=== PATIENT | male | born 1955 | race Caucasian/White ===

== ENCOUNTER 2023-04-28 09:21 | Outpatient (OUT) | payer MEDICARE, OTHER, SELFPAY ==
--- NOTE | 2023-04-28 09:37 | XR_ITS ---
The [address] [address] Patient Name: PRICE ESCOTO MRN: [id number] date: 1955 Sex: M Assigned Patient Location: [facility] Current Patient Location: [facility] Accession/Order Number: [id number] Exam Date: 04/28/2023 09:44 Report Date: 04/28/2023 11:04 At the request of: DAYANNA LARSEN Procedure: XR chest 2V EXAM: XR chest 2V HISTORY: Subacute Cough R05.2 COMPARISON: None. TECHNIQUE: PA and lateral views of the chest. FINDINGS: The cardiomediastinal silhouette is normal. No focal consolidation is identified. There is no pneumothorax. No pleural effusion is noted. The osseous structures are intact. XR/XR chest 2V IMPRESSION: No acute cardiopulmonary process. Electronically authenticated by: SARAH LEIVA Date: 04/28/2023 11:04
== END 2023-04-28 09:22 | disposition home or self-care (01) ==
PROVIDERS: PCP Internal Medicine; Visit Provider Internal Medicine
DX: R05.2 Subacute cough (principal)
CPT/HCPCS: 71046

== ENCOUNTER 2023-05-18 11:19 | Outpatient (OUT) | payer MEDICARE, OTHER, SELFPAY ==
--- NOTE | 2023-05-18 12:15 | XR_ITS ---
The [address] [address] Patient Name: PRICE ESCOTO MRN: [id number] date: 1955 Sex: M Assigned Patient Location: LAB Current Patient Location: LAB Accession/Order Number: [id number] Exam Date: 05/18/2023 12:05 Report Date: 05/19/2023 11:32 At the request of: JONATHAN AVILA Procedure: XR sinus min 3V EXAM: XR sinus min 3V. HISTORY: Chronic Sinusitis J32.9. COMPARISON: None. TECHNIQUE: 4 views of the paranasal sinuses were obtained. FINDINGS: Paranasal sinuses appear well-developed and aerated. No evidence of mass lesions, air-fluid levels or bony destruction suggested. No significant mucosal thickening. Visualized mastoid air cells appear grossly unremarkable. XR/XR sinus min 3V IMPRESSION: Paranasal sinuses study is grossly unremarkable. Follow-up as needed. Electronically authenticated by: TISH HALL Date: 05/19/2023 11:32
[2023-05-22 06:09] LABS: D001-IgE D pteronyssinus <0.10 kU/L (Class 0); D002-IgE D farinae <0.10 kU/L (Class 0); E001-IgE Cat Dander <0.10 kU/L (Class 0); E005-IgE Dog Dander <0.10 kU/L (Class 0); E072-IgE Mouse Urine <0.10 kU/L (Class 0); G002-IgE Bermuda Grass <0.10 kU/L (Class 0); G006-IgE Timothy Grass <0.10 kU/L (Class 0); I006-IgE Cockroach, German <0.10 kU/L (Class 0); Immunoglobulin E, Total 50 IU/mL (6-495); M001-IgE Penicillium chrysogen <0.10 kU/L (Class 0); M002-IgE Cladosporium herbarum <0.10 kU/L (Class 0); M003-IgE Aspergillus fumigatus <0.10 kU/L (Class 0); M006-IgE Alternaria alternata <0.10 kU/L (Class 0); T001-IgE Maple/Box Elder <0.10 kU/L (Class 0); T003-IgE Common Silver Birch <0.10 kU/L (Class 0); T006-IgE Cedar, Mountain <0.10 kU/L (Class 0); T007-IgE Oak, White <0.10 kU/L (Class 0); T008-IgE Elm, American <0.10 kU/L (Class 0); T010-IgE Walnut <0.10 kU/L (Class 0); T011-IgE Maple Leaf Sycamore <0.10 kU/L (Class 0); T014-IgE Cottonwood <0.10 kU/L (Class 0); T015-IgE Ash, White <0.10 kU/L (Class 0); T022-IgE Pecan, Hickory <0.10 kU/L (Class 0); T070-IgE White Mulberry <0.10 kU/L (Class 0); W001-IgE Ragweed, Short <0.10 kU/L (Class 0); W011-IgE Thistle, Russian <0.10 kU/L (Class 0); W014-IgE Pigweed, Common <0.10 kU/L (Class 0); W018-IgE Sheep Sorrel <0.10 kU/L (Class 0)
== END 2023-05-18 11:20 | disposition home or self-care (01) ==
LOC: LAB 11:23
PROVIDERS: PCP Internal Medicine; Visit Provider Otolaryngology
DX: J32.9 Chronic sinusitis, unspecified (principal); J30.9 Allergic rhinitis, unspecified
CPT/HCPCS: 36415; 70220; 82785; 86003

== ENCOUNTER 2023-06-23 11:59 | Outpatient (OUT) | payer MEDICARE, OTHER, SELFPAY ==
[2023-06-26 12:10] LABS: D001-IgE D pteronyssinus <0.10 kU/L (Class 0); D002-IgE D farinae <0.10 kU/L (Class 0); E001-IgE Cat Dander <0.10 kU/L (Class 0); E005-IgE Dog Dander <0.10 kU/L (Class 0); E072-IgE Mouse Urine <0.10 kU/L (Class 0); G002-IgE Bermuda Grass <0.10 kU/L (Class 0); G006-IgE Timothy Grass <0.10 kU/L (Class 0); I006-IgE Cockroach, German <0.10 kU/L (Class 0); Immunoglobulin E, Total 53 IU/mL (6-495); M001-IgE Penicillium chrysogen <0.10 kU/L (Class 0); M002-IgE Cladosporium herbarum <0.10 kU/L (Class 0); M003-IgE Aspergillus fumigatus <0.10 kU/L (Class 0); M006-IgE Alternaria alternata <0.10 kU/L (Class 0); T001-IgE Maple/Box Elder <0.10 kU/L (Class 0); T003-IgE Common Silver Birch <0.10 kU/L (Class 0); T006-IgE Cedar, Mountain <0.10 kU/L (Class 0); T007-IgE Oak, White <0.10 kU/L (Class 0); T008-IgE Elm, American <0.10 kU/L (Class 0); T010-IgE Walnut <0.10 kU/L (Class 0); T011-IgE Maple Leaf Sycamore <0.10 kU/L (Class 0); T014-IgE Cottonwood <0.10 kU/L (Class 0); T015-IgE Ash, White <0.10 kU/L (Class 0); T022-IgE Pecan, Hickory <0.10 kU/L (Class 0); T070-IgE White Mulberry <0.10 kU/L (Class 0); W001-IgE Ragweed, Short <0.10 kU/L (Class 0); W011-IgE Thistle, Russian <0.10 kU/L (Class 0); W014-IgE Pigweed, Common <0.10 kU/L (Class 0); W018-IgE Sheep Sorrel <0.10 kU/L (Class 0)
== END 2023-06-23 12:00 | disposition home or self-care (01) ==
PROVIDERS: PCP Internal Medicine; Visit Provider Otolaryngology
DX: R97.20 Elevated prostate specific antigen [PSA] (principal); N40.1 Benign prostatic hyperplasia with lower urinary tract symptoms; J30.9 Allergic rhinitis, unspecified
CPT/HCPCS: 36415; 82785; 84153; 84154; 86003

== ENCOUNTER 2023-06-23 12:02 | Outpatient (OUT) | payer MEDICARE, OTHER, SELFPAY ==
--- OUTSIDE RECORDS SUMMARY | 2023-06-23 12:07 | XMS_ITS | CCD ---
Author Name Unknown Address [address] [place] [address] Organization [facility] Care Team Providers Care Senior Technical Writer Name Role Phone MILO GARCIA Primary Care Physician [phone] DO Milo Garcia Primary Care Provider MD Jose Cage Attending Provider Milo Garcia Primary Care Unavailable Jose Cage Attending Unavailable Cage, Jose Admitting Unavailable Jose, Milo Unavailable JOSE, DR ALAN Admitting Unavailable BALL, DR ALAN Attending Unavailable BALL, DR ALAN Primary Care Unavailable BALL, DR ALAN Consulting Unavailable ZIEBER, DR GERONIMO Arias Consulting Unavailable BALL, DR ALAN Admitting Unavailable BALL, DR ALAN Attending Unavailable BALL, DR ALAN Primary Care Unavailable BALL, DR ALAN Consulting Unavailable CAGE ., DR CLANCY Admitting Unavailable CAGE ., DR CLANCY Attending Unavailable BALL, DR ALAN Referring Unavailable BALL, DR ALAN Primary Care Unavailable CAGE ., DR CLANCY Consulting Unavailable BALL, DR ALAN Admitting Unavailable BALL, DR ALAN Attending Unavailable BALL, DR ALAN Primary Care Unavailable BALL, DR ALAN Consulting Unavailable CAGE, Jose Arias Attending Unavailable CAGE, Jose Arias Attending Unavailable CAGE, Jose R Attending Unavailable CAGE, Jose Arias Admitting Unavailable LACEY AVILA Attending Unavailable BALL, MILO E Referring Unavailable Allergies Allergy Classification Reported Allergen(s) Allergy Type Date of Onset Reaction(s) Facility (5 sources) Bee/Wasp/Ant venom; Translations: [Bee Stings] Drug allergy Anaphylaxis (disorder) [facility] (1 source) Bee pollen Drug allergy (disorder) 9 [facility] (1 source) patient allergy list reviewed by nurse or physicia Propensity to adverse reactions 8 Comment:Done [employer] Other (1 source) Bee Sting Drug allergy Unknown [employer] Other Medications Current Medications Medication Drug Class(es) Dates Sig (Normalized) Sig (Original) benzonatate 100 mg oral capsule (2 sources) Non-narcotic Antitussive Start: 04-17-2023 take 1 capsule by mouth every eight hours Benzonatate 100 MG 1 capsule as needed Orally Three times a day for 10 days Apr, Active diclofenac sodium 75 mg delayed release oral tablet (8 sources) Nonsteroidal Anti-inflammatory Drug Start: 10-19-2018 Diclofenac Sodium Active 75 MG PO As Directed October 19, 2018 12:00am Diclofenac Sodiu m ER PRN Not-Taking/PRN Diclofenac Sodiu m ER PRN Not-Taking fexofenadine hydrochloride 180 mg oral tablet (5 sources) Histamine-1 Receptor Antagonist Start: 04-10-2023 take 1 tablet by mouth once daily Fexofenadine HCl 180 MG 1 tablet Swallow whole with water; do not take with fruit juices. Orally Once a day for 30 days Mar, Active fluticasone propionate 0.05 mg/actuat metered dose nasal spray (5 sources) Corticosteroid Start: 04-10-2023 take 2 spray(s) nasal route once daily Fluticasone Propionate 50 MCG/ACT 2 sprays each side Nasally Once a day for 30 days Mar, Active take 2 spray(s) nasal route once daily Fluticasone Propionate 50 MCG/ACT SPRAY 2 SPRAYS INTO EACH NOSTRIL ONCE DAILY FOR 30 DAYS Active omeprazole 20 mg delayed release oral capsule (17 sources) Proton Pump Inhibitor Start: 10-19-2018 take 1 capsule by mouth once daily as needed omeprazole 20 mg Cap-DR 20 mg = 1 cap(s), Oral, Daily, PRN as needed, Refills(s) 0, Control of stomach acid Start Date: 02/10/22 Status: Ordered Omeprazole 40 MG TAKE 1 CAPSULE BY MOUTH 30 MINUTES BEFORE MORNING MEAL EVERY DAY FOR 30 DAYS Active predniSONE 20 mg oral tablet (3 sources) Start: 04-10-2023 predniSONE 20 MG 1 tablet Orally twice daily w/ food x 5 days for 5 days Mar, Active Completed/Discontinued Medications Medication Drug Class(es) Dates Sig (Normalized) Sig (Original) ciprofloxacin 500 mg oral tablet (3 sources) Quinolone Antimicrobial Start: 02-10-2022 Cipro 500 mg Tab 500 mg = 1 tab(s), Oral, As Directed, Pt to take 1 tab the day before procedure and the 2nd tab the day of procedure once completed., # 2 tab(s), Refills(s) 0, Pharmacy: [facility]/pharmacy #[id number], 178, cm, 02/10/22 10:43:00 EDT, Height/Length Dosing, 78.5, k... Start Date: 02/10/22 Status: Ordered triamcinolone acetonide 40 mg/ml injectable suspension (13 sources) Corticosteroid Start: 10-13-2022 Kenalog-40 Mar, 60 mg Problems Active Problems Problem Classification Problem Date Documented Da te Episodic/Chronic Disorders of lipid metabolism (20 sources) Familial hypercholesterolemia; Translations: [Pure hypercholesterolemia] Onset: 9 02-10-2022 Chronic Esophageal disorders (12 sources) Gastroesophageal reflux disease; Translations: [Esophageal reflux finding] Onset: 4 02-10-2022 Chronic Genitourinary symptoms and ill-defined conditions (1 source) Microscopic hematuria; Translations: [Asymptomatic microscopic hematuria] Onset: 3 Episodic Hyperplasia of prostate (12 sources) Benign prostatic hypertrophy with outflow obstruction; Translations: [Benign prostatic hyperplasia with lower urinary tract symptoms] Onset: 5 Chronic Immunizations and screening for infectious disease (1 source) Vaccination given; Translations: [Encounter for immunization] Episodic Nausea and vomiting (1 source) Nausea and vomiting; Translations: [Nausea with vomiting, unspecified] Episodic Noninfectious gastroenteritis (1 source) Non-infective enteritis and colitis; Translations: [Noninfective gastroenteritis and colitis, unspecified] Episodic Osteoarthritis (8 sources) Arthritis of joint of left shoulder region; Translations: [Primary osteoarthritis, left shoulder] Chronic Other aftercare (1 source) Other grain drier (current) drug therapy; Translations: [OTH GROUP HOME CURRENT DRUG THERAPY] Onset: 3 Episodic Other aftercare (1 source) Long-term current use of drug therapy; Translations: [Other grain drier (current) drug therapy] Episodic Other circulatory disease (7 sources) Cardiovascular symptoms; Translations: [Other specified symptoms and signs involving the circulatory and respiratory systems] Episodic Other circulatory disease (2 sources) Other specified symptoms and signs involving the circulatory and respiratory systems; Translations: [Chronic throat clearing] Episodic Other circulatory disease (1 source) Elevated blood-pressure reading, without diagnosis of hypertension Episodic Other connective tissue disease (1 source) Medial epicondylitis; Translations: [Medial epicondylitis, unspecified elbow] Episodic Other gastrointestinal disorders (1 source) Diarrhea; Translations: [Diarrhea, unspecified] Episodic Other injuries and conditions due to external causes (1 source) History of fall; Translations: [History of falling] Episodic Other nutritional; endocrine; and metabolic disorders (1 source) Obese class I; Translations: [Body mass index 32.0-32.9, adult] Onset: 5 Chronic Other nutritional; endocrine; and metabolic disorders (1 source) Simple obesity ; Translations: [Other obesity due to excess calories] Onset: 5 Chronic Other nutritional; endocrine; and metabolic disorders (1 source) Body mass index 30+ - obesity; Translations: [Body mass index 31.0-31.9, adult] Onset: 4 Chronic Other nutritional; endocrine; and metabolic disorders (1 source) Obesity; Translations: [Obesity, unspecified] Onset: 5 Chronic Other nutritional; endocrine; and metabolic disorders (2 sources) Overweight Episodic Other nutritional; endocrine; and metabolic disorders (1 source) Overweight; Translations: [Overweight] Episodic Other screening for suspected conditions (not mental disorders or infectious disease) (20 sources) Raised prostate specific antigen; Translations: [Patient encounter status] Onset: 9 02-10-2022 Episodic Other upper respiratory disease (19 sources) Allergic rhinitis due to pollen; Translations: [Allergic rhinitis due to pollen] Chronic Other upper respiratory disease (4 sources) Allergic rhinitis due to pollen Chronic Other upper respiratory disease (1 source) Seasonal allergic rhinitis; Translations: [Other seasonal allergic rhinitis] Onset: 7 Chronic Other upper respiratory disease (1 source) Allergic rhinitis; Translations: [Allergic rhinitis, unspecified] Onset: 4 Chronic Spondylosis; intervertebral disc disorders; other back problems (8 sources) Lumbar spondylosis; Translations: [Spondylosis without myelopathy or radiculopathy, lumbar region] Chronic Substance-related disorders (9 sources) Smoker; Translations: [Nicotine dependence, cigarettes, in remission] Onset: 3 02-10-2022 Chronic Comment on above: Added secondary to d ocumentation in Social History. Unclassified (4 sources) Asymptomatic microscopic hematuria 02-10-2022 Unclassified (1 source) Exposure to acute respiratory syndrome coronavirus 2; Translations: [Contact with and (suspected) exposure to COVID-19] Past or Other Problems Problem Classification Problem Date Documented Da te Episodic/Chronic Acute bronchitis (1 source) Acute bronchitis; Translations: [Acute bronchitis, unspecified] Onset: 05-30-2015 Episodic Esophageal disorders (4 sources) Esophageal disorders; Translations: [Gastroesophageal reflux disease with esophagitis without hemorrhage] Gastrointestinal hemorrhage (1 source) Hemorrhage of rectum and anus; Translations: [Hemorrhage of rectum and anus] Onset: 09-28-2018 Episodic Inflammation; infection of eye (except that caused by tuberculosis or sexually transmitteddisease) (1 source) Acute follicular conjunctivitis; Translations: [Acute follicular conjunctivitis, bilateral] Onset: 04-23-2018 Episodic Malaise and fatigue (2 sources) Malaise and fatigue; Translations: [Other malaise and fatigue] Onset: 08-01-2013 Episodic Open wounds of extremities (1 source) Laceration with foreign body of left upper arm, subsequent encounter; Translations: [Laceration with foreign body of left upper arm, subsequent encounter] Onset: 03-03-2016 Episodic Other connective tissue disease (1 source) Achilles bursitis; Translations: [Achilles bursitis or tendinitis] Onset: 04-23-2018 Episodic Other upper respiratory infections (1 source) Acute sinusitis; Translations: [Acute sinusitis, unspecified] Onset: 06-16-2014 Episodic Residual codes; unclassified (1 source) Family history of diabetes mellitus; Translations: [Family history of diabetes mellitus] Onset: 11-09-2013 Episodic Residual codes; unclassified (1 source) Family history of stroke; Translations: [Family history of stroke] Onset: 11-09-2013 Episodic Screening and history of mental health and substance abuse codes (1 source) History of tobacco use; Translations: [Personal history of tobacco use, presenting hazards to health] Onset: 05-08-2017 Episodic Unclassified (1 source) Long-term current use of drug therapy; Translations: [Long-term (current) use of other medications] Onset: 11-06-2018 Unclassified (1 source) Vaccine product containing only acellular Bordetella pertussis and Clostridium tetani and Corynebacterium diphtheriae antigens (medicinal product); Translations: [Ooqfetdfkc-oabfdty-d ertussis, combined [DTP] [DtaP]] Onset: 03-03-2016 Unclassified (1 source) Acute cough R05.1 Unclassified (1 source) Subacute cough R05.2 Results Test Name Value Interpretation Reference Range Facility CT LUNG CANCER SCREENINGon 0 10-13-2022 CT LUNG CANCER SCREENING EXAMINATION: CT LUNG CANCER SCREENING HISTORY: Nicotine dependence in remission COMPARISON: CT lung cancer screening 10/09/2021 TECHNIQUE: Axial, Coronal, and Sagittal images were created without the administration of IV contrast material. Dose reduction techniques were achieved by using automated exposure control and/or adjustment of mA and/or kV according to patient size and/or use of iterative reconstruction technique. FINDINGS: LUNGS: No visible pulmonary disease. PLEURA: No mass, effusion, or pneumothorax. VASCULATURE: No abnormality. ANTONI: No mass or pathologic adenopathy. MEDIASTINUM: No mass or pathologic adenopathy. CARDIAC: No enlargement, pericardial thickening, or significant calcification. AORTA: No aneurysm or dissection. CHEST WALL: No mass or axillary adenopathy BONES: Slight anterior wedging of T7 vertebral body, unchanged; developmental versus remote mild compression fracture. LIMITED ABDOMEN: No suspicious findings. Limited images of the upper abdomen. OTHER: Negative. IMPRESSION: 1. Lung-RADS Category 1 Negative. No nodules and definitely benign nodules. Continue annual screening with LDCT in 12 months. Electronically authenticated by: GERONIMO RODARTE Date: 2022-10-13 14:42 Normal [facility] Coding Summary.on 10-04-2022 Coding Summary. CD:[id number] W w+PGhlYWQ+GD3OBLNxX04 gwJWdyQ7gL7BPSRqJXwtd KIEWYDjNAfGogvFoOH9yc XNjZXJu IC8+DH3dETZyBmullMHwy 5V0kIU2D82yco1mCWxspL G5QPXrYxUktippi8ngyYz 6IDcuNmluOyBt HOIsqJ46CAY5pS64Yd42g FEslMHkp2qtdRq4HlOkAY IuXZD8qFsqDJcvp3ReUGE bQ26uoZIgs9H8 UUKutWzpdNFkKuNdzIR7l C2cETvxuujfx2wkryyvJg m1qs68gGPey6P0zSO9O2R zfmA7LSOzpWBd YvdqnABWaB6auasnv8rfb hjqSrOaXBIwFGa8ORn4YW YwpGuiRiUbGR38OEC8UGU jzsIpS9RiNSMz xPwhUmZ6p5Z7Sl9EZ7VTO pjcE4EIAEXFVTvccSM+PC 37ke54K5TrQqlsRlc3QPV uUFM1mVB3bC7g HHEjIOpzf8I0fNN5W8Vsc qJfsb3kr5fyXOTmPHinU3 3qoNRjc5K4UWFixXW9HAO xfQedQlPyoA86 Oyc+ZEMcsVrnq7QkPkmag 9dao6gcyMx8VqluZVQpwl EorGgbTRD6k3EzVi8sPQL nyDY6iZJ3sX7c BnEoUiR5ZWjrM655RkEhc IVrHwczT23dO2KmqSA+PH QqFja8XVSwhEqnYJ4nS9T hZGRpbmctbGVm uHfxAD1nIYAybmpbEZJax A4uAFGdH9v0XzSkDrJ2CB rwT2KzCHXcdnvoYc21zD1 gJbOgPfL7FIce P1KajvC7NKEmtDLuGScsK VR3W31mj4F3LPMyNTTzQX H2dZU4sG7qjBzecwrzkRY mdDsgdmVydGlj OKndXEfcL510ZUUwcPmeF kNvZGluZyBEYXRlOiAgMD QvMjIvMjAyMzwvdGQ+PHR cUCO9sLrhFKIg qVVfAHgyDg4txCkuyKciU L8jSJTcrcfeVRUuzN8mDP GfyVLnkDbkDZ1fIYGibpk fw235XoYxTJM8 FTPtrPTqE8FagR9gMtEtU CDqXFTgO5ZldQZsWKyoN4 67FCddSpO8DURrofFiX3L sLWFsaWduOiB0 c7M6Ay2Bk4OdbgvgR6Zmw PBxGxFyDseaASm5T7XiZz wvdHI+AC00YRAlCZ59LNp 3OJY2fYfzSOym GJNmM8SsrP5fBhZfIFVhF GRkOyc+PHRhYmxlIHdpZH RoPScxMDAlJyBzdHlsZT0 qNm6iJZPeUQTr tHylgDCoHbOxi4jxTSEpT SahYF7cbWxcG4MkeAI0ZS Abr9y9Ai30V29tU0NleRG +PDCsoXU7zAN0 yB9mGaWyPqI8XIjqH510O aSssAKxGrisk7wlt4edaX z9SdV7LPIcygZryZcrIGU 2f6NeLr23T15r IHdpZHRoPSIxNSUiIHZhb Hnplm4lpR8rCs0+PGNvbC P9jQA7nC0nTrAuQpA5TPg dU526FuZiaUGh Cgagu4ird9qiaPx6FoCjL THnweKsdHdvWJB0q2CaOr 97E8EoyUjkf5MjFky4oi7 5rSGso4K3cTI8 F9CyGLYvhvlwhYLjaBacG E0fGISjvcukUCKwhP1vWB GlO7n2VsZyAuB9NOupF2C wuoF9WMAjgAEt NRGcoXDEqS5qqsydo0pem lvaStOeBQAlYEf8LFi2OY SnoDabCwPiGEN7BpM5SRQ 9cUDfsU6rhQkw ytudwB9gVxq+GWI1uOAoz HLFTW3xFdnyuAV+PHRkIH Q9fKqfVIuoRJIkjP7cUYZ yP4r1RuLxRwH8 MCwhZ9DorrV8PGAwpQTnD NFtwTKHyN4rvvpjl9dxob owRkIkDRThNMd3FZk8HUB saWduOiBsZWZ0 HyH3GOX1jXUewP2ttVlxu zwotW1xOhb+QmlydGggRG B5TTx9H9ObIky3TCXptPh lWI0npRRzCTha No7afGvzyRzqKQ6wFVAnn qrag913PtPzv3rpSZQxbP BhMRmsLHQ7A71hr9H9LCJ eAZMyCAC8mFS8 sZ9coEjrvczayBVztYoox bImyKmgASqkEOnjR074NW YupLrwXlKvXBl9K3FdOow 5TAIilYzgZZ2e mYZuLZobDh3bvDqseZlbI Z9sFXSszjgah255XvKkc0 kcHKDavINeCVwbMXS4O96 ig7D0BKQtRZXr OJK6ySZ5aT5dzPykvpbjz GVmdDsgdmVydGljYWwtYW klC632XGMgeJacJyKpeZq 5Z0XoLci0WNGc aCyqMQ9ttTOxDQdgNa6pq ErfpIulMQ4uJBAjgvzuh0 03JaScu1aeMBFrrXDiVQd nYQH9X98cc0Y5 HGTtCCApBDK3mMB0iY6py GlnbjogbGVmdDsgdmVydG daKYrhFPmlL475BNCpmCv nPlBhdGllbnQg LOjzAHu1H8GdSzojjCD+P F62PPZrQS11nMAhrWRda0 rciYv5DiMsBAKhEWS8hTm nCZuvs5TeOLSr L40ypZKqh9I0RPSomUyap ZJpRyLasVH1kK6hSBpysk atj8nwaxhxFdrzl2emtc5 4eK80W38yHOkf ZHRoPSIzMCUiIHZhbGlnb z3orQ2wXq4+JWIsyBU2nJ L3yP6bTPKaDbA3RDyhC29 9InRvcCIvPjxj y7rsw8awwUc5PrB5IAHab kYkfNksVXY1g8XgCl15H4 9sIHdpZHRoPSIyMCUiIHZ chPjpzo8umV0k Ii8+OHPvlVZ6bWB4rW9uU zQlGjP5NRobZ454ZzKtwF JmAqcbI76zO9XhnLK+PHR bGjr6UNVfvLse VB4jgYXoYFkoRv6xXEY4W hZvKuAuPYzcE8ImVOKmsd qngsyvkOQ2RIVyGQXkfH4 7Fn5lwUtxHYLv cZEUjH8hbuzvh2wvvwqhP sXdGQBwYIg7WFi7ZNVufB fwNsMxETS7BwC4SZP7zOZ mfO8iqXudypll oJ9fI9DuPELgtpaeMf07y M0bQiTeKkP7PVitNqq+U0 cZZkRcLXHEGswUHRe4R3R eOap2SEVqnMjm ZO7wgPTkTKjfFd8qoYxlf MctCK5wEPPawwzwXBUidV 4vBXHurOSpeAvsJN4jDSP ppdgbt692RzLi ZUJ7VFPqfICrI8RpxD7vH tUuMDYeMSRmJ5NvrYDvZP ikV252VIhiWkI7UIOyxlK wZ6NwLPSgpCju TrF1s0C2Vt4fLu6tXw4oG EZ1MN15RC53yQInz6P1cU G6C1RtSGNraenstbqftNG 8KBZdWWNxmX13 rPRxUEdvBk5yc3V3r377I KNjPKTefF42Nn8rjGlqZU XvpRYJqF1bzgeze6dphnk gIzAwMDAwMDt0 DDm5AZBdiQkoCkBdAGX7E zM6HYW6eCCluV3wqTjbot wxwR9nEkc+NjkgWWVhcnM 2S4ThWqv3KMJb mPspED7wvZXtGAisKa5lw BcmjJuwBI2bDMJrjmuoKD OqxQ6gGUPywAXivUraLD2 gENZqsfepx351 WvQeEGG3RXFltIMpC7Orr O4bZiNyYLIiJNNbT7ZumR YjNIhzI223XHszHbT2EYF exqTfY5HmBMYr eImsTgE0k7E1Hj5LVVtgI P50WB86wBVmk9A3mDV2F8 PoSSElyjanmzeuuHH3AUQ rPALsvV91wITo PPxtLd0ci2Q8h881FTNdX LVlvC96Yb3yhMmcFZQifF ROnC9wndwzh2dgrnnzXfT ySPZeDSu5ZUr2 XXIfdNkkQlSuQOC5YwQ8I HP5rUMwzR8hmLhmlewfvS 9wOyc+YVYoJVGve2Mrg7D eZI61QU07L6Me PjwvdGFibGU+PHRhYmxlI HdpZHRoPScxMDAlJyBzdH khBM4pPj4sNNAxXLMkpWh tcHAfOcJrt6rq JWFpEPgjHV1hfNxpD2Obb YV1BLVcb6p3Ak37P72tC8 JvdXA+NCDfnGP3nEP9rV8 pPiThPgZ1IHzr Y042QnSpnGHcFonox3xqx 2znzSu5EhDxMHLyjwMikL aeJNF5d6SlDz47F52tARo pZHRoPSIyMCUi HZLjcIhrsv9blN7yDz0+P VHxvUR0qLE5bE4lKcUnDw Z9NIxlE018WhSkiIIvKfa kH86hP6ZryZJ+ HSPcNvk2YVGhuYvgTS8na EFhEJjgPy4tRLH7IrVgSs SuHXvwD1XpOTVtmgzmqar rwQT6QFDuBMIx sH61Aq6uhXrjWk4vTBFnO DF0TBJacSPtT0VcuY6xJs RtLPJrZAYpX3PsnRLgPAg eQ784LMppFmJ1 LCZkwvEvO8MpKGQcvYehS gK1m4L0Lc3PzLsjpNRwWM 8tJhLdYAf6E9GcGvf4DZM ikLzxBG3vbVKv GHhiEu4zzTewuLtqZX9jY JJianxdl841YbJrt1frMU JtcOQvVOwpGLV4I20cn0Q 4ZYMbVPXcCIK6 aSR7aX1zyDoeimeukKKaa DsgdmVydGljYWwtYWxpZ2 03XDTvtHskUuKTVuz1U4R yIjo1WBVysGdc TR5heUPdQNkaMc4tlVgwe UcfWE3eDKVnnmkab669Uo Vmp1gbZPVosOIzJEjfOJP 5J84bd4Y5SSQl EJPbWKU1aGE7yQ9mqDfqe jogbGVmdDsgdmVydGljYW ltIOnfV419SZMpbFxzSn5 ZYhw5Y3TmTns5 XESnvNseZC5goEMmTSojW z3xiVlqvDogNF4cZONsma wqc858NdEgo5jgZOMlgFP qNHknTLD2I56m f7X5ZOVnJLFnZXJ5cGI1y Y4dyDfnxcdlnQZeeYhalb MxeQpfJSdtXIexA492OBR vcDsnPlBheWVy OjwvdGQ+OC34zr90D3EyL ovvRos7LYZzJXW9xCD1bN 7fDIBbKEpyq5L9hOQ3Y5J lwlJcak8jd4lf YXBzZTog (more content not included)... Normal [facility] CBC AUTO DIFFon 10-01-2022 BASO # 0.0 103/ul Normal 0.0-0.1 [facility] Comment on above: Performed By: #### C BC #### [facility] [address] [address] [address] Claudine Foster Basophils/100 WBC (Bld) 0.5 % Normal 0.2-2.0 [facility] Comment on above: Performed By: #### C BC #### [facility] [address] [address] [address] Claudine Foster EO # 0.1 103/ul Normal 0.0-0.7 [facility] Comment on above: Performed By: #### C BC #### [facility] [address] [address] [address] Claudine Foster Eosinophils/100 WBC (Bld) 1.6 % Normal 0.9-7.0 [facility] Comment on above: Performed By: #### C BC #### [facility] [address] [place] [address] Dr. Claudine Foster Erythrocyte distribution width (RBC) [Ratio] 13.1 % Normal 11.0-15.0 [facility] Comment on above: Performed By: #### C BC #### [facility] [address] [place] [address] Dr. Claudine Foster Hematocrit (Bld) [Volume fraction] 42.3 % Normal 42.0-54.0 [facility] Comment on above: Performed By: #### C BC #### [facility] [address] [place] [address] Dr. Claudine Foster Hemoglobin (Bld) [Mass/Vol] 14.5 g/dL Normal 14.0-18.0 [facility] Comment on above: Performed By: #### C BC #### [facility] [address] [place] [address] Dr. Claudine Foster IG # 0.03 10e3/ul Normal 0.00-0.03 [facility] Comment on above: Performed By: #### C BC #### [facility] [address] [place] [address] Dr. Claudine Foster IG % 0.5 % Normal 0.0-0.5 [facility] Comment on above: Performed By: #### C BC #### [facility] [address] [place] [address] Dr. Claudine Foster LYMPH # 2.2 103/ul Normal 1.2-3.8 [facility] Comment on above: Performed By: #### C BC #### [facility] [address] [place] [address] Dr. Claudine Foster Lymphocytes/100 WBC (Bld) 34.1 % Normal 20.5-60.0 [facility] Comment on above: Performed By: #### C BC #### [facility] [address] [place] [address] Dr. Claudine Foster MANUAL DIFF REQ NO Normal [facility] Comment on above: Performed By: #### C BC #### [facility] [address] [place] [address] Dr. Claudine Foster MCH (RBC) [Entitic mass] 32.6 pg Normal 25.9-34.0 [facility] Comment on above: Performed By: #### C BC #### [facility] [address] [place] [address] Dr. Claudine Foster MCHC (RBC) [Mass/Vol] 34.3 g/dL Normal 29.9-35.2 [facility] Comment on above: Performed By: #### C BC #### [facility] [address] [place] [address] Dr. Claudine Foster MCV (RBC) [Entitic vol] 95.1 fL Critically high 80.0-94.0 [facility] Comment on above: Performed By: #### C BC #### [facility] [address] [place] [address] Dr. Claduine Foster MONO # 0.6 103/ul Normal 0.3-0.8 [facility] Comment on above: Performed By: #### C BC #### [facility] [address] [place] [address] Dr. Claudine Foster Monocytes/100 WBC (Bld) 9.1 % Normal 1.7-12.0 [facility] Comment on above: Performed By: #### C BC #### [facility] [address] [address] [address] Claudine Foster NEUT # 3.5 103/ul Normal 1.4-6.5 [facility] Comment on above: Performed By: #### C BC #### [facility] [id number] Claudine Foster Neutrophils/100 WBC (Bld) 54.2 % Normal 43.0-75.0 [facility] Comment on above: Performed By: #### C BC #### [facility] [address] [address] [address] Claudine Foster Platelet mean volume (Bld) [Entitic vol] 9.2 fL Critically low 9.5-13.5 [facility] Comment on above: Performed By: #### C BC #### [facility] [address] [address] [address] Claudine Foster PLT 193 103/ul Normal 150-450 [facility] Comment on above: Performed By: #### C BC #### [facility] [address] [address] [address] Claudine Foster RBC 4.45 106/ul Critically low 4.70-6.10 [facility] Comment on above: Performed By: #### C BC #### [facility] [address] [address] [address] Claudine Foster WBC 6.4 103/ul Normal 4.0-11.0 [facility] Comment on above: Performed By: #### C BC #### [facility] [address] [address] [address] Claudine Foster LIPID PROFILEon 10-01-2022 CHOL-HDL RATIO NORM SEE BELOW Normal [facility] Comment on above: Result Comment: 3.3 - 4.4 LOW RISK 4.4 - 7.1 AVERAGE RISK 7.1 - 11.0 MODERATE RISK >11.0 HIGH RISK Performed By: #### B MP, LIPID #### [facility] [address] [address] [address] Claudine Foster Cholesterol [Mass/Vol] 199 mg/dL Normal <=200 Th [facility] Comment on above: Performed By: #### B MP, LIPID #### [facility] [address] [address] [address] Claudine Foster Cholesterol in HDL [Mass/Vol] 60 mg/dL Normal 40-60 [facility] Comment on above: Performed By: #### B MP, LIPID #### [facility] [address] [address] [address] Claudine Foster Cholesterol in LDL [Mass/Vol] 126.8 mg/dL Normal [facility] Comment on above: Performed By: #### B MP, LIPID #### [facility] [address] [address] [address] Claudine Foster Cholesterol.total/Chol esterol in HDL [Mass ratio] 3.3 {ratio} Normal [facility] Comment on above: Performed By: #### B MP, LIPID #### [facility] [address] [address] [address] Claudine Foster HDL NORMAL > or = 60 mg/dl - LO W CARDIOVASCULAR RISK <40 mg/dl - HIGH CARDIOVASCULAR RISK Normal [facility] Comment on above: Performed By: #### B MP, LIPID #### [facility] [address] [place] [address] Dr. Claudine Foster LDL CALC NORMAL SEE BELOW [facility] Comment on above: Result Comment: <100 mg/dl OPTIMAL 100 - 129 mg/dl NEAR OR ABOVE OPTIMAL 130 - 159 mg/dl BORDERLINE HIGH 160 - 189 mg/dl HIGH >190 mg/dl VERY HIGH Performed By: #### B MP, LIPID #### [facility] [address] [place] [address] Dr. Claudine Foster Triglyceride [Mass/Vol] 61 mg/dL Normal <=150 [facility] Comment on above: Performed By: #### B MP, LIPID #### [facility] [address] [place] [address] Dr. Claudine Foster VLDL CALC 12.2 mg/dL Normal [facility] Comment on above: Performed By: #### B MP, LIPID #### [facility] [address] [address] [address] Claudine Foster PROF CHEM 8 (BAS METB)on Anion gap [Moles/Vol] 12.1 mmol/L Normal [facility] Comment on above: Performed By: #### B MP, LIPID #### [facility] [address] [address] [address] Claudine Foster Calcium [Mass/Vol] 9.0 mg/dL Normal 8.5-10.1 [facility] Comment on above: Performed By: #### B MP, LIPID #### [facility] [address] [address] [address] Claudine Foster Chloride [Moles/Vol] 106 mmol/L Normal 98-107 [facility] Comment on above: Performed By: #### B MP, LIPID #### [facility] [address] [place] [address] Dr. Claudine Foster CO2 [Moles/Vol] 27.4 mmol/L Normal 21.0-32.0 [facility] Comment on above: Performed By: #### B MP, LIPID #### [facility] [address] [place] [address] Dr. Claudine Foster Creatinine [Mass/Vol] 0.92 mg/dL Normal 0.70-1.30 [facility] Comment on above: Performed By: #### B MP, LIPID #### [facility] [address] [place] [address] Dr. Claudine Foster EGFR-AF MOSOTHO >60 Normal >=60 [facility] Comment on above: Performed By: #### B MP, LIPID #### [facility] [address] [place] [address] Dr. Claudine Foster EGFR-NON AF MOSOTHO >60 Normal >=60 [facility] Comment on above: Performed By: #### B MP, LIPID #### [facility] [address] [place] [address] Dr. Claudine Foster Glucose [Mass/Vol] 93 mg/dL Normal 74-106 [facility] Comment on above: Performed By: #### B MP, LIPID #### [facility] [address] [place] [address] Dr. Claudine Foster Potassium [Moles/Vol] 4.4 mmol/L Normal 3.5-5.1 [facility] Comment on above: Performed By: #### B MP, LIPID #### [facility] [address] [address] [address] Claudine Foster Sodium [Moles/Vol] 141 mmol/L Normal 136-145 [facility] Comment on above: Performed By: #### B MP, LIPID #### [facility] [address] [address] [address] Claudine Foster Urea nitrogen [Mass/Vol] 19.0 mg/dL Critically high 7.0-18.0 [facility] Comment on above: Performed By: #### B MP, LIPID #### [facility] [address] [address] [address] Claudine Foster Urea nitrogen/Creatinine [Mass ratio] 20.6 mg/mg Normal [facility] Comment on above: Performed By: #### B MP, LIPID #### [facility] [address] [address] [address] Claudine Foster Ambulatory Visit Summaryon 0 09-29-2022 Ambulatory Visit Summary PRAVEEN VALENTIN :1955 Visit Date:09/29/2022 Ambulatory Visit Instructions Your Diagnosis Elevated PSA BPH with urinary obstruction Asymptomatic microscopic hematuria Tests Performed Urnls Dip Stick Auto w/o Microscopy POC 16946 Your Care Team Attending Physician - Jose CAGE MD Primary Care Physician - MILO GARCIA DO This Is Your Medications List Contact prescribing physician if questions or concerns omeprazole (omeprazole 20 mg Carmelo-) Procedures Performed Cystoscopy (02/25/2022), Appendectomy, Colonoscopy, Manipulation of deviated nasal septum, Procedure on wrist. Discharge Vitals Heart Rate (Peripheral) 68 Respiratory Rate 16 Blood Pressure 132/74 Height 178 cm Height 70 in Weight 82 kg Weight 180.4 lb BMI 25.88 What to do next Scheduled Follow-Up Appointments Thursday 11:15 AM EDT With: Jose CAGE MD Where: [facility] PSA Totalon 04-17-2023 Prostate specific Ag [Mass/Vol] 2.0 ng/mL Normal 0.1-3.5 [facility] Comment on above: Result Comment: The concentration of PSA determined by different manufacturers can vary due to differences in assay methods and reagent specificity. Values obtained from different assay methods cannot be used interchangeably. The methodology used for this result was chemiluminescence using [employer]'s Access Hybrite[employer] PSA reagent. Performed By: #### 1 [id number] #### [facility] [address] [place] [address] Patient Educationon 09-30-19 Patient Education Oncology Prostate Cancer Screening The prostate is a walnut-sized gland that is located below the bladder and in front of the rectum in males. The function of the prostate (prostate gland) is to add fluid to semen during ejaculation. Prostate cancer is the second most common type of cancer in men. A screening test for cancer is a test that is done before cancer symptoms start. Screening can help to identify cancer at an early stage, when the cancer can be treated more easily. The recommended prostate cancer screening test is a blood test called the prostate-specific antigen (PSA) test. PSA is a protein that is made in the prostate. As you age, your prostate naturally produces more PSA. Abnormally high PSA levels may be caused by: ? Prostate cancer. ? An enlarged prostate that is not caused by cancer (benign prostatic hyperplasia, BPH). This condition is very common in older men. ? A prostate gland infection (prostatitis). ? Medicines to assist with hair growth, such as finasteride. Depending on the PSA results, you may need more tests, such as: ? A physical exam to check the size of your prostate gland. ? Blood and imaging tests. ? A procedure to remove tissue samples from your prostate gland for testing (biopsy). Who should have screening? Screening recommendations vary based on age. ? If you are younger than age 40, screening is not recommended. ? If you are age 40?54 and you have no risk factors, screening is not recommended. ? If you are younger than age 55, ask your health care provider if you need screening if you have one of these risk factors: ? Being of -[place] descent. ? Having a family history of prostate cancer. ? If you are age 55?69, talk with your health care provider about your need for screening and how often screening should be done. ? If you are older than age 70, screening is not recommended. This is because the risks that screening can cause are greater than the benefits that it may provide (risks outweigh the benefits). If you are at high risk for prostate cancer, your health care provider may recommend that you have screenings more often or start screening at a younger age. You may be at high risk if you: ? Are older than age 55. ? Are -[place]. ? Have a father, brother, or uncle who has been diagnosed with prostate cancer. The risk may be higher if your family member's cancer occurred at an early age. What are the benefits of screening? There is a small chance that screening may lower your risk of dying from prostate cancer. The chance is small because prostate cancer is typically a slow-growing cancer, and most men with prostate cancer from a different cause. What are the risks of screening? The main risk of prostate cancer screening is diagnosing and treating prostate cancer that would never have caused any symptoms or problems (overdiagnosis and overtreatment). PSA screening cannot tell you if your PSA is high due to cancer or a different cause. A prostate biopsy is the only procedure to diagnose prostate cancer. Even the results of a biopsy may not tell you if your cancer needs to be treated. Slow-growing prostate cancer may not need any treatment other than monitoring, so diagnosing and treating it may cause unnecessary stress or other side effects. A prostate biopsy may also cause: ? Infection or fever. ? A false negative. This is a result that shows that you do not have prostate cancer when you actually do have prostate cancer. Questions to ask your health care provider ? When should I start prostate cancer screening? ? What is my risk for prostate cancer? ? How often do I need screening? ? What type of screening tests do I need? ? How do I get my test results? ? What do my results mean? ? Do I need treatment? Contact a health care provider if: ? You have difficulty urinating. ? You have pain when you urinate or ejaculate. ? You have blood in your urine or semen. ? You have pain in your back or in the area of your prostate. ? You have trouble getting or maintaining an erection (erectile dysfunction, ED). Summary ? Prostate cancer is a common type of cancer in men. The prostate (prostate gland) is located below the bladder and in front of the rectum. This gland adds fluid to semen during ejaculation. ? Prostate cancer screening may identify cancer at an early stage, when the cancer can be treated more easily. ? The prostate-specific antigen (PSA) test is the recommended screening test for prostate cancer. ? Discuss the risks and benefits of prostate cancer screening with your health care provider. If you are age 70 or older, screening is likely to lead to more risks than benefits (risks outweigh the benefits). This information is not intended to replace advice given to you by your health care provider. Make sure you discuss any questions you have with your health care provider. Document Released: 03/12/2018 Document R (more content not included)... Normal [facility] Urology Office/Clinic Noteon 09-29-2022 Urology Office/Clinic Note Chief Complaint 6m HPI Staff 6m due to elevated PSA & Microscopic Hematuria. Did not get PSA drawn prior to appt. Will drawn PSA in office today. NEG FISH/Cytology done at time of last encounter NEG CT a/p 02/18/22 S/P Cysto done 02/25/22 Did have MRI Prostate done 03/04/22. NEG. Pt was then started on Levaquin therapy. And was to repeat PSA. PSA done 04/01/22- 2.0 & 22.0%. (prior PSA done 01/14/22- 5.81) No recent PSA. PSA drawn in our office today. Pt knows we will call only if results are abnormal. Pt does have access to [facility] Portal, knows results will be posted later this evening. Pt denies all urinary complaints. Would like to discuss results of the testing, no other concerns. Pt does have another PSA check scheduled in our office 04/06/23. History of Present Illness Tests reviewed: reviewed UA, PSA. I have reviewed the previous health record information and history for this patient from Dr. Cage. I have reviewed and verified the staff HPI to be accurate for this encounter. There have been no associated fever, chills, flank pain, or blood in the urine. Denies any urinary infections since last encounter. Review of Systems PHQ Score Initial Depression Screen Score: 0 ROS - Provider Constitutional: denies weight loss, denies hot flashes. Eyes: denies eye problems. Gastrointestinal: denies nausea, denies vomiting. Cardiovascular: denies chest pain or angina. Integumentary: no dryness Musculoskeletal: denies musculoskeletal symptoms. ENMT: denies otolaryngeal symptoms. Respiratory: no shortness of breath. Heme/Lymph: denies easy bleeding tendency, denies easy bruising tendency. Psychiatric: no confusion, no anxiety. Genitourinary: See HPI. Physical Exam Vitals & Measurements HR: 68(Peripheral) RR: 16 BP: 132/74 HT: 70 in HT: 178 cm WT: 82 kg WT: 180.4 lb BMI: 25.88 General Appearance: alert, no distress, well nourished, well developed male. Genitourinary: normal scrotum, normal testes, normal urethra, normal epididymis, normal vas deferens/spermatic cord. Flank Pain: none. Bladder: nonpalpable. Assessment/Plan 1. Elevated PSA (R97.20: Elevated prostate specific antigen [PSA]) PSA: 10/03/21 - 3.34 01/14/22 - 5.81 Completed Levaquin course 04/01/22 - 2.00 & 22% PSA level drawn IO today No family hx of prostate cancer. MRI Prostate 03/04/22 - No MRI evidence of prostate malignancy. BPH changes. Prostate volume 39 cc. LAURENCE 02/10/22 - 45 gm, no nodules. Follow up 6 mos with PSA, LAURENCE or sooner if needed. Pt understands and agrees with plan. -Will call if PSA level is abnormal 2. BPH with urinary obstruction (N40.1: Benign prostatic hyperplasia with lower urinary tract symptoms) Cysto 02/25/22 - Obstructed median lobe. Mild trabec. No bladder tumors. UA today shows trace leuks. Pt is asx for UTI. Strong stream. Feels he empties completely. No nocturia. States he drinks a lot of fluids. Voids q4-5hr. Educated pt that he is not voiding frequently enough and this can increase risk for low-grade infection and subsequent psa elelvation. Not taking any prostate meds. Not struggling to void at all, not indication to start on prostate meds. Behavioral modifications below instead. -Timed voids q2-3hr during the day regardless of sensation -Consider adding prostate med in the future 3. Asymptomatic microscopic hematuria (R31.21: Asymptomatic microscopic hematuria) FISH/cytol 02/10/22 - Both neg. CT AP w con 02/18/22 [facility] - No acute pathology in the abdomen or pelvis. Cysto 02/25/22 - No bladder tumors. (Hematuria workup 02/2022 was neg.) UA today neg for blood. Follow-up With When Contact Information Jose CAGE MD, URL [facility] [address] [place] [address]- Additional Instructions: 6 mos PSA, LAURENCE Patient Education Prostate Cancer Screening I, Kari Cantu, personally scribed for Dr. Cage on 09/29/2022 11:36:54. . Documentation recorded by the scribe, Kari Cantu, accurately reflects the services(s) I performed and decisions made by me. Authenticated by Dr. Cage on 09/29/2022 11:40:51. Problem List/Past Medical History Ongoing Asymptomatic microscopic hematuria BPH with urinary obstruction Elevated PSA GERD (gastroesophageal reflux disease) Hyperlipidemia type II Smoker Historical No qualifying data Procedure/Surgical History Cystoscopy (02/25/2022), Appendectomy, Colonoscopy, Manipulation of deviated nasal septum, Procedure on wrist. Medications omeprazole 20 mg Cap-DR, 20 mg= 1 cap(s), Oral, Daily, PRN Allergies Bee Stings (Anaphylactic reaction) Social History Tobacco 10 or more cigarettes (1/2 pack or more)/day in last 30 days Tobacco Use:. Cigarettes, 09/29/2022 Family History Family history is negative Immunizations Vaccine Date Status SARS-CoV-2 (COVID-19) mRNAMUL.ORD![id number] 05/07/2022 Recorded SARSCoV2 mRNA(chywefpas-sdxt-e ucros) (more content not included)... Normal [facility] Comment on above: Result Comment: Elec tronically Signed By: Jose CAGE MD\.br\Date and Time Signed: 09/29/22 11:40 EDT\.br\Electronically Co-Signed By: Kari Cantu\.br\Date and Time Co-Signed: 09/29/22 11:37 EDT Lab Reportson 04-03-2022 Lab Reports [id number] .[id number]:127 Normal [facility] Lab Reportson 04-02-2022 Lab Reports [id number] .[id number]:127 Normal [facility] PSA, FREE AND TOTAL RATIOon 04-02-2022 % Free PSA 22.0 % Normal [facility] Comment on above: Result Comment: The table below lists the probability of prostate cancer for men with non-suspicious LAURENCE results and total PSA between 4 and 10 ng/mL, by patient age (Jackie et al, CARMEN 1998, 279:1542). % Free PSA 50-64 yr 65-75 yr 0.00-10.00% 56% 55% 10.01-15.00% 24% 35% 15.01-20.00% 17% 23% 20.01-25.00% 10% 20% >25.00% 5% 9% Please note: Jackie et al did not make specific recommendations regarding the use of percent free PSA for any other population of men. Performed By: #### P SAFREE #### [facility] [address] [place] [address] Dr. Claudine Foster Prostate specific Ag [Mass/Vol] 2.0 ng/mL Normal 0.0-4.0 [facility] Comment on above: Result Comment: Roch e ECLIA methodology. . According to the [place] [employer], Serum PSA should decrease and remain at undetectable levels after radical prostatectomy. The AUA defines biochemical recurrence as an initial PSA value 0.2 ng/mL or greater followed by a subsequent confirmatory PSA value 0.2 ng/mL or greater. Values obtained with different assay methods or kits cannot be used interchangeably. Results cannot be interpreted as absolute evidence of the presence or absence of malignant disease. Performed By: #### P SAFREE #### [facility] [address] [place] [address] Dr. Claudine Foster PSA, Free 0.44 ng/mL Normal N/A [facility] Comment on above: Result Comment: Roch e ECLIA methodology. Performed By: #### P SAFREE #### [facility] [address] [place] [address] Dr. Claudine Foster Creatinine (Bld) [Mass/Vol]O rdered By: Jose Cage on 03-04-2022 Creatinine [Mass/Vol] 1.0 mg/dL 0.6-1.3 [facility] Comment on above: ER/ESD physician is notified/shown all ISTAT results. Critical values may be confirmed by laboratory testing if deemed necessary by ER attending doctor. ISTAT XRay CREon 03-04-2022 Creatinine [Mass/Vol] 1.0 mg/dL Normal 0.6-1.3 [facility] Comment on above: Result Comment: ER/E SD physician is notified/shown all ISTAT results. Critical values may be confirmed by laboratory testing if deemed necessary by ER attending doctor. Performed By: #### I SCRE #### [address] Point of Care testing , ISTAT GFR ( > 60 Normal [facility] Comment on above: Result Comment: GFR estimated reference range: According to KDOQI guidelines, <60 ml/min/1.73m2 is sufficient to diagnose a patient with chronic kidney disease. PERFORMED BY: [place] [address] PATHOLOGIST [employer]PERVISOR DADA COOK M.D. Performed By: #### I SCRE #### [address] Point of Care testing , ISTAT GFR (Non- Am > 60 Normal [facility] Comment on above: Performed By: #### I SCRE #### [address] Point of Care testing , MR prostate wo/w conon 03-04 MR prostate wo/w con [facility] Main [place] [address] [place] [address] MRI Report Signed Patient: Praveen Valentin MR#: [id number] 1 : 1955 Acct:[id number] Age/Sex: 66 / M ADM Date: 03/04/22 Loc: MR Room: Type: [facility] Attending Dr: Jose Cage MD Copies to: Jose Cage MD Ordering Provider: Jose Cage MD Date of Service: 03/04/22 MR/MR prostate wo/w con: ELEVATED PSA EXAMINATION: MR prostate wo/w con HISTORY: Elevated PSA COMPARISON: NONE TECHNIQUE: Multiparametric imaging of the prostate gland was performed with IV contrast. FINDINGS: Prostate Dimensions: 4.6 x 3.5 x 4.6 cm Prostate Volume: 39 mL Peripheral Zone: Heterogenous inT2 signal suggestive of prior prostatitis. No suspicious T2 or ADC map abnormality is identified to suggest prostate malignancy. Central/Transitional Zone: BPH changes. Seminal Vesicles: Unremarkable Neurovascular bundles: Unremarkable. Lymphadenopathy: No evidence of lymphadenopathy. Bladder: No focal lesion. Bowel: The visualized bowel is without acute abnormality. Peritoneal Cavity: No free fluid. Bones: No suspicious bony lesion. MR/MR prostate wo/w con IMPRESSION: No MR evidence of prostate malignancy. BPH changes. Impression dictated by: Tez Barakat Jr., D.O.03/04/2022 3:29 PM Dictation Location: [place] [address] Transcribed By: [facility] 03/04/22 1529 Dictated By: Tez Barakat Jr, DO 03/04/22 1524 Signed By: 03/04/22 1529 Normal [facility] No Panel InformationOrdered By: Jose Cage on 03-04-2022 POC Estimated GFR > 60 [facility] Comment on above: GFR estimated refere nce range: According to KDOQI guidelines, <60 ml/min/1.73m2 is sufficient to diagnose a patient with chronic kidney disease. POC Estimated GFR Non- Amer > 60 [facility] CHEMISTRYOrdered By: SYSTEM SYSTEM on 02-11-2022 Creatinine [Mass/Vol] 1.0 mg/dL Normal 0.5 - 1.3 mg/dL [facility] Remisol GFR/1.73 sq M.predicted among blacks MDRD (S/P/Bld) [Vol rate/Area] mL/min/1.73 m2 Normal >=59mL/min/1. 73 m2 [facility] Chem S GFR/1.73 sq M.predicted among non-blacks MDRD (S/P/Bld) [Vol rate/Area] mL/min/1.73 m2 Normal >=59mL/min/1. 73 m2 [facility] Chem S CBC AUTO DIFFon 01-14-2022 BASO # 0.1 103/ul Normal 0.0-0.1 [facility] Comment on above: Performed By: #### C BC #### [facility] [address] [address] [address] Claudine Foster Basophils/100 WBC (Bld) 0.5 % Normal 0.2-2.0 [facility] Comment on above: Performed By: #### C BC #### [facility] [address] [address] [address] Claudine Foster EO # 0.1 103/ul Normal 0.0-0.7 [facility] Comment on above: Performed By: #### C BC #### [facility] [address] [address] [address] Claudine Foster Eosinophils/100 WBC (Bld) 0.8 % Critically low 0.9-7.0 [facility] Comment on above: Performed By: #### C BC #### [facility] [address] [address] [address] Claudine Foster Erythrocyte distribution width (RBC) [Ratio] 12.9 % Normal 11.0-15.0 [facility] Comment on above: Performed By: #### C BC #### [facility] [address] [address] [address] Claudine Foster Hematocrit (Bld) [Volume fraction] 42.1 % Normal 42.0-54.0 [facility] Comment on above: Performed By: #### C BC #### [facility] [address] [address] [address] Claudine Foster Hemoglobin (Bld) [Mass/Vol] 14.6 g/dL Normal 14.0-18.0 [facility] Comment on above: Performed By: #### C BC #### [facility] [address] [address] [address] Claudine Foster IG # 0.05 10e3/ul Critically high 0.00-0.03 [facility] Comment on above: Performed By: #### C BC #### [facility] [address] [place] [address] Dr. Claudine Foster IG % 0.5 % Normal 0.0-0.5 [facility] Comment on above: Performed By: #### C BC #### [facility] [address] [place] [address] Dr. Claudine Foster LYMPH # 2.0 103/ul Normal 1.2-3.8 [facility] Comment on above: Performed By: #### C BC #### [facility] [address] [place] [address] Dr. Claudine Foster Lymphocytes/100 WBC (Bld) 20.5 % Normal 20.5-60.0 [facility] Comment on above: Performed By: #### C BC #### [facility] [address] [place] [address] Dr. Claudine Foster MANUAL DIFF REQ NO [facility] Comment on above: Performed By: #### C BC #### [facility] [address] [place] [address] Dr. Claudine Foster MCH (RBC) [Entitic mass] 33.6 pg Normal 25.9-34.0 [facility] Comment on above: Performed By: #### C BC #### [facility] [address] [place] [address] Dr. Claudine Foster MCHC (RBC) [Mass/Vol] 34.7 g/dL Normal 29.9-35.2 [facility] Comment on above: Performed By: #### C BC #### [facility] [address] [place] [address] Dr. Claudine Foster MCV (RBC) [Entitic vol] 97.0 fL Critically high 80.0-94.0 [facility] Comment on above: Performed By: #### C BC #### [facility] [address] [place] [address] Dr. Claudine Foster MONO # 0.8 103/ul Normal 0.3-0.8 [facility] Comment on above: Performed By: #### C BC #### [facility] [address] [place] [address] Dr. Claudine Foster Monocytes/100 WBC (Bld) 7.6 % Normal 1.7-12.0 [facility] Comment on above: Performed By: #### C BC #### [facility] [address] [place] [address] Dr. Claudine Foster NEUT # 6.9 103/ul Critically high 1.4-6.5 [facility] Comment on above: Performed By: #### C BC #### [facility] [address] [place] [address] Dr. Claudine Foster Neutrophils/100 WBC (Bld) 70.1 % Normal 43.0-75.0 [facility] Comment on above: Performed By: #### C BC #### [facility] [address] [place] [address] Dr. Claudine Foster Platelet mean volume (Bld) [Entitic vol] 9.0 fL Critically low 9.5-13.5 [facility] Comment on above: Performed By: #### C BC #### [facility] [address] [place] [address] Dr. Claudine Foster PLT 191 103/ul Normal 150-450 [facility] Comment on above: Performed By: #### C BC #### [facility] [address] [place] [address] Dr. Claudine Foster RBC 4.34 106/ul Critically low 4.70-6.10 [facility] Comment on above: Performed By: #### C BC #### [facility] [address] [place] [address] Dr. Claudine Foster WBC 9.9 103/ul Normal 4.0-11.0 [facility] Comment on above: Performed By: #### C BC #### [facility] [address] [place], [place] [id number] Dr. Claudine Foster LIPID PROFILEon 01-14-2022 CHOL-HDL RATIO NORM SEE BELOW Normal [facility] Comment on above: Result Comment: 3.3 - 4.4 LOW RISK 4.4 - 7.1 AVERAGE RISK 7.1 - 11.0 MODERATE RISK >11.0 HIGH RISK Performed By: #### B MP, LIPID #### [facility] [address] [address] [address] Claudine Foster Cholesterol [Mass/Vol] 195 mg/dL Normal <=200 [facility] Comment on above: Performed By: #### B MP, LIPID #### [facility] [address] [address] [address] Claudine Foster Cholesterol in HDL [Mass/Vol] 68 mg/dL Critically high 40-60 [facility] Comment on above: Performed By: #### B MP, LIPID #### [facility] [address] [address] [address] Claudine Foster Cholesterol in LDL [Mass/Vol] 116.6 mg/dL Normal [facility] Comment on above: Performed By: #### B MP, LIPID #### [facility] [address] [address] [address] Claudine Foster Cholesterol.total/Chol esterol in HDL [Mass ratio] 2.9 {ratio} Normal [facility] Comment on above: Performed By: #### B MP, LIPID #### [facility] [address] [address] [address] Claudine Foster HDL NORMAL > or = 60 mg/dl - LO W CARDIOVASCULAR RISK <40 mg/dl - HIGH CARDIOVASCULAR RISK Normal [facility] Comment on above: Performed By: #### B MP, LIPID #### [facility] [address] [address] [address] Claudine Foster LDL CALC NORMAL SEE BELOW [facility] Comment on above: Result Comment: <100 mg/dl OPTIMAL 100 - 129 mg/dl NEAR OR ABOVE OPTIMAL 130 - 159 mg/dl BORDERLINE HIGH 160 - 189 mg/dl HIGH >190 mg/dl VERY HIGH Performed By: #### B MP, LIPID #### [facility] [address] [address] [address] Claudine Foster Triglyceride [Mass/Vol] 52 mg/dL Normal <=150 [facility] Comment on above: Performed By: #### B MP, LIPID #### [facility] [address] [address] [address] Claudine Foster VLDL CALC 10.4 mg/dL Normal [facility] Comment on above: Performed By: #### B MP, LIPID #### [facility] [address] [place] [address] Dr. Claudine Foster PROF CHEM 8 (BAS METB)on Anion gap [Moles/Vol] 13.3 mmol/L Normal [facility] Comment on above: Performed By: #### B MP, LIPID #### [facility] [address] [place] [address] Dr. Claudine Foster Calcium [Mass/Vol] 8.8 mg/dL Normal 8.5-10.1 [facility] Comment on above: Performed By: #### B MP, LIPID #### [facility] [address] [place] [address] Dr. Claudine Foster Chloride [Moles/Vol] 105 mmol/L Normal 98-107 [facility] Comment on above: Performed By: #### B MP, LIPID #### [facility] [address] [place] [address] Dr. Claudine Foster CO2 [Moles/Vol] 26.1 mmol/L Normal 21.0-32.0 [facility] Comment on above: Performed By: #### B MP, LIPID #### [facility] [address] [place] [address] Dr. Claudine Foster Creatinine [Mass/Vol] 0.83 mg/dL Normal 0.70-1.30 [facility] Comment on above: Performed By: #### B MP, LIPID #### [facility] [address] [place] [address] Dr. Claudine Foster EGFR-AF MOSOTHO >60 Normal >=60 [facility] Comment on above: Performed By: #### B MP, LIPID #### [facility] [address] [place] [address] Dr. Claudine Foster EGFR-NON AF MOSOTHO >60 Normal >=60 [facility] Comment on above: Performed By: #### B MP, LIPID #### [facility] [address] [place] [address] Dr. Claudine Foster Glucose [Mass/Vol] 97 mg/dL Normal 74-106 [facility] Comment on above: Performed By: #### B MP, LIPID #### [facility] [address] [address] [address] Claudine Foster Potassium [Moles/Vol] 4.4 mmol/L Normal 3.5-5.1 [facility] Comment on above: Performed By: #### B MP, LIPID #### [facility] [address] [address] [address] Claudine Foster Sodium [Moles/Vol] 140 mmol/L Normal 136-145 [facility] Comment on above: Performed By: #### B MP, LIPID #### [facility] [address] [place] [address] Dr. Claudine Foster Urea nitrogen [Mass/Vol] 12.0 mg/dL Normal 7.0-18.0 [facility] Comment on above: Performed By: #### B MP, LIPID #### [facility] [address] [address] [address] Claudine Foster Urea nitrogen/Creatinine [Mass ratio] 14.5 mg/mg Normal [facility] Comment on above: Performed By: #### B MP, LIPID #### [facility] [address] [place] [address] Sinus w/o Contrast*on CT Sinus w/o Contrast* HISTORY: Rhinitis . Chronic throat clearing. Occasional cough. Deviated nasal septum. Hypertrophy of both inferior nasal turbinates. COMPARISON: None available TECHNIQUE: Multiple axial images of the paranasal sinuses were obtained without contrast enhancement. Multiplanar reformatted images were acquired at the CT console. All CT scans at this facility use dose modulation, iterative reconstruction, and/or weight based dosing when appropriate to reduce radiation dose to as low as reasonably achievable. FINDINGS: Maxillary Sinuses: Clear. Sphenoid Sinuses: Clear. Frontal Sinuses: Clear. Ethmoid Air Cells: Clear. Ostiomeatal units, frontal recesses, and sphenoethmoidal recesses are patent. 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 No Aishwarya or Onodi cells. Keros type II olfactory fossa. Middle ears: Clear. Nasal Septum: Leftward deviation with spurring. Bones: No evidence of osseous destruction. Miscellaneous: No acute intracranial process identified. Orbital contents are within normal limits. IMPRESSION: Paranasal sinuses are clear. Report reported and signed by Nikolai Garcia on 11/01/2021 1329 Normal [facility] Vital Signs Date Time Vital Sign Value Performing Clinician Facility 05-11-2023 14:00-0500 Body height 177.8 cm Milo Ball Other [employer] Other 05-11-2023 14:00-0500 Body mass index (BMI) [Ratio] 26.71 kg/m2 Milo Ball Other [employer] Other 05-11-2023 14:00-0500 Body weight 84.46 kg Milo Ball Other [employer] Other 05-11-2023 14:00-0500 Diastolic blood pressure 100 mm[Hg] Milo Ball Other [employer] Other 05-11-2023 14:00-0500 Respiratory rate 12 /min Milo Ball Other [employer] Other 05-11-2023 14:00-0500 Systolic blood pressure 153 mm[Hg] Milo Ball Other [employer] Other 04-10-2023 11:00-0400 Body height 177.8 cm Milo Ball Other [employer] Other 04-10-2023 11:00-0400 Body mass index (BMI) [Ratio] 26.31 kg/m2 Milo Ball Other [employer] Other 04-10-2023 11:00-0400 Body weight 83.19 kg Milo Ball Other [employer] Other 04-10-2023 11:00-0400 Diastolic blood pressure 81 mm[Hg] Milo Ball Other [employer] Other 04-10-2023 11:00-0400 Systolic blood pressure 120 mm[Hg] Milo Ball Other [employer] Other 10-13-2022 12:00-0400 Body height 177.8 cm Milo Ball Other [employer] Other 10-13-2022 12:00-0400 Body mass index (BMI) [Ratio] 26.89 kg/m2 Milo Ball Other [employer] Other 10-13-2022 12:00-0400 Body weight 85 kg Milo Ball Other [employer] Other 10-13-2022 12:00-0400 Diastolic blood pressure 86 mm[Hg] Milo Ball Other [employer] Other 10-13-2022 12:00-0400 SaO2% (BldA) [Mass fraction] 95 % Milo Ball Other [employer] Other 10-13-2022 12:00-0400 Systolic blood pressure 148 mm[Hg] Milo Ball Other [employer] Other 09-29-2022 10:51-0400 Blood Pressure Location Jose CAGE [facility] 09-29-2022 10:51-0400 Diastolic blood pressure 74 mm[Hg] Jose IRVIN [facility] 09-29-2022 10:51-0400 Heart rate 68 /min Jose CAGE [facility] 09-29-2022 10:51-0400 Respiratory rate 16 /min Jose CAGE [facility] 09-29-2022 10:51-0400 Systolic blood pressure 132 mm[Hg] Jose CAGE [facility] 03-04-2022 07:14-0400 Body height 177.8 cm DO Milo Ball Work Phone: [facility] 03-04-2022 07:14-040 Body weight 78.5 kg DO Milo Ball Work Phone: [facility] Encounters Encounter Date Encounter Type Care Provider Facility Start: 05-22-2023 End: 05-22-2023 ambulatory Milo Ball Other [employer] Other Start: 05-22-2023 Telephone encounter Milo Ball [facility] Start: 05-18-2023 End: 05-18-2023 ambulatory LACEY AVILA Not Available Start: 05-11-2023 End: 05-11-2023 ambulatory Milo Ball Other [employer] Other Start: 05-11-2023 Office outpatient vi sit 15 minutes Milo Ball [facility] Start: 04-27-2023 End: 04-27-2023 ambulatory Milo Ball Other [employer] Other Start: 04-27-2023 Telephone encounter Milo Ball [facility] Start: 04-17-2023 End: 04-17-2023 ambulatory Milo Ball Other [employer] Other Start: 04-17-2023 Telephone encounter Milo Ball [facility] Start: 04-10-2023 End: 04-10-2023 ambulatory Milo Ball Other [employer] Other Start: 04-10-2023 Office outpatient vi sit 15 minutes Milo Garcia [facility] Start: 03-16-2023 End: 03-16-2023 ambulatory Milo Garcia Other [employer] Other Start: 03-16-2023 Nursing evaluation o f patient and report Milo Garcia [facility] Start: 10-13-2022 Patient encounter procedure Milo Garcia [facility] Start: 10-13-2022 End: 10-14-[address] MILO GARCIA [facility] [employer] Other Start: 10-01-2022 End: 10-02-[address] MILO GARCIA Facility: Start: 09-29-2022 End: 09-30-2022 ambulatory Jose CAGE Facility:[facility] Start: 09-29-2022 End: 09-30-2022 ambulatory Jose CAGE Facility:[facility] Start: 09-29-2022 End: 09-29-2022 Patient encounter procedure Jose CAGE [facility] Start: 04-01-2022 End: 04-02-[address] JOSE CAGE . Facility: Start: 03-04-2022 End: 03-04-2022 ambulatory Milo Garcia Facility:[facility] Start: 03-04-2022 End: 03-04-2022 Patient encounter procedure DO Milo Garcia Work Phone: [facility] [place] Start: 02-25-2022 End: 02-25-2022 Patient encounter procedure Jose CAGE [facility] Start: 02-18-2022 End: 02-18-2022 Patient encounter procedure Jose CAGE [facility] Start: 02-11-2022 End: 02-11-2022 Patient encounter procedure Jose CAGE [facility] Start: 01-15-2022 Adult health examination Milo Garcia Other [facility] Other Start: 01-14-2022 End: 01-15-[address] MILO GARCIA Facility:[facility] Procedures Date Procedure Procedure Detail Performing Clinician Start: 03-04-2022 MR prostate wo/w con DO Milo Garcia Work Phone: Start: 02-25-2022 Cystoscopy Jose TRUJILLO Start: 01-14-[address] GONSALVES IN [facility] Comment on above: Performed By: #### P [facility] #### [facility] [address] [place] [address] Dr. Claudine Foster Start: 09-28-2018 Screening for malign ant neoplasm of colon Milo Garcia Other Start: 09-28-2018 Screening for malign ant neoplasm of prostate Milo Garcia Other Start: 06-12-2015 Screening for malign ant neoplasm of colon Milo Garcia Other Start: 08-05-2013 General examination of patient Milo Garcia Other Start: 08-01-2013 Hyperlipidemia screening Milo Garcia Other Appendectomy Jose CAGE Colonoscopy Jose CAGE Depression screening Ada Garcia Other Manipulation of disp laced nasal septum Jose CAGE Procedure on wrist Jose Tiana RASHEED Screening for malign ant neoplasm of prostate Milo Garcia Other Plan of Treatment Date Care Activity Detail Author Start: 07-10-2023 ambulatory Ambulatory Facility:[facility] Immunizations Immunization Date Immunization Notes Care Provider Fa alma 05-07-2022 SARS-CoV-2 (COVID-19 ) [id number] Jose CAGE [facility] 04-08-2022 influenza virus vaccine, split virus (incl. purified surface antigen) Milo Garcia Other [employer] Other 10-28-2021 COVID-19 Pfizer Milo bermudez Other [employer] Other 10-28-2021 SARS-CoV-2 mRNA (fktnnaeercy-dwjn-vlmxi se) vaccine Jose CAGE [facility] 04-16-2021 influenza virus vaccine, unspecified formulation Jose CAGE [facility] 04-02-2021 SARS-CoV-2 (COVID-19 ) mRNA BNT-162b2 vax Jose CAGE [facility] 09-04-2020 SARS-CoV-2 (COVID-19 ) mRNA BNT-162b2 vax Jose CAGE [facility] 08-13-2020 SARS-CoV-2 (COVID-19 ) mRNA BNT-162b2 vax Jose CAGE [facility] 03-13-2020 influenza virus vaccine, split virus (incl. purified surface antigen) Milo Garcia Other [employer] Other 03-13-2020 influenza virus vaccine, unspecified formulation Jose CAGE [facility] 09-30-2019 pneumococcal polysaccharide vaccine, 23 valent Milo Garcia Other [employer] Other 05-02-2019 influenza virus vaccine, split virus (incl. purified surface antigen) Milo Garcia Other [employer] Other 09-28-2018 pneumococcal conjuga te vaccine, 13 valent Jose CAGE [facility] 09-28-2018 pneumococcal Conjuga te, unspecified formulation; Translations: [Need for prophylactic vaccination against Streptococcus pneumoniae (pneumococcus)] Milo Garcia Other [employer] Other 03-24-2018 influenza virus vaccine, split virus (incl. purified surface antigen) Milo Garcia Other [employer] Other 03-15-2018 influenza virus vaccine, unspecified formulation Josecresencio CAGE [facility] 03-15-2018 tetanus toxoid, redu lillian diphtheria toxoid, and acellular pertussis vaccine, adsorbed Josecresencio CAGE [facility] 03-03-2016 diphtheria, tetanus toxoids and acellular pertussis vaccine, unspecified formulation Milo Garcia Other [employer] Other 03-03-2016 tetanus toxoid, redu lillian diphtheria toxoid, and acellular pertussis vaccine, adsorbed Jose CAGE [facility] Payers Date Payer Category Payer Self-pay [id number] 1961 Medicare [id number] 1961 Unknown [id number] 1955 Unknown [id number] 2.16.84 [id number] 1955 Unknown [id number] 2.16.84 [id number] 1955 Unknown [id number] 2.16.84 [id number] 1955 Unknown [id number] 2.16.84 [id number] 1955 Unknown [id number] 2.16.8 [id number] 1955 Unknown [id number] 2.16.8 [id number] 1953 Unknown [id number] 2.16.8 [id number] 1953 Unknown [id number] [id number] Unknown [id number] 2.16.8 [id number] Social History Date Type Detail Facility Start: 02-10-2022 Tobacco smoking status Smoker (findi ng) [facility] Sex Assigned At Male [facility] Start: 10-22-2018 [facility] Start: 1955 Sex Assigned At Male [facility] Start: 09-29-2022 Tobacco smoking status Heavy t obacco smoker (finding) [facility] Functional Status Date Assessment Result Facility 09-29-2022 Functional Status N/A [facility] 02-25-2022 Functional Status N/A [facility] 02-20-2022 Functional Status [facility] Clinical Notes 02-25-2022 to 05-11-2023 Note Date & Type Note Facility 05-11-2023 Evaluation note Encounter Date Diagnosis Assessment Notes Apr, Gastroesophageal reflux disease with esophagitis without hemorrhage (ICD-10 - K21.00) Diet instructions: Smaller portions, avoid eating and laying flat, avoid eating or drinking prior to bedtime. Weight loss. Continue PPI for now. Apr, Non-seasonal allergic rhinitis due to pollen (ICD-10 - J30.1) Continue Flonase and Justa. May d/c in future if allergy symptoms remain suppressed. Apr, Chronic throat clearing (ICD-10 - R09.89) Likely due to combination of PND and GERD. Continue Flonase, Justa and PPI. Refer to ENT for evaluation. Apr, Elevated BP without diagnosis of hypertension (ICD-10 - R03.0) This patient is instructed to consume a healthy, low-fat, low-salt diet. They are also encouraged to continue exercise to achieve/maint ain a normal BMI. Patient is instructed on home BP measurements: - rest for 5 minutes w/o talking- positioned w/ feet on floor and arm supported- average best 2/3 readings w/ goal < 135/85 [employer] Other 11-13-2023 Evaluation note* Encounter Date Diagnosis Assessment Notes Treatment Notes Treatment Clinical Notes Apr, Subacute cough (ICD-10 - R05.2) [employer] Other 11-03-2023 Evaluation note* Encounter Date Diagnosis Assessment Notes Treatment Notes Treatment Clinical Notes Apr, Acute cough (ICD-10 - R05.1) [employer] Other 10-27-2023 Evaluation note* Encounter Date Diagnosis Assessment Notes Treatment Notes Treatment Clinical Notes Mar, Non-seasonal allergi c rhinitis due to pollen (ICD-10 - J30.1) Avoid smoke, dust or allergens as much as possible. Referral to Neck Cutter or ENT if no improvement Mar, Gastroesophageal reflux disease with esophagitis without hemorrhage (ICD-10 - K21.00) Diet instructions: Smaller portions, avoid eating and laying flat, avoid eating or drinking prior to bedtime. Weight loss. Restart PPI Mar, Overweight (ICD-10 - E66.3) This patient has been instructed on a low-fat, high-fiber diet. They are instructed to reduce calories, portion sizes and snacks. It is recommended that they exercise for 30 minutes, 3-5 times weekly. [employer] Other 10-02-2023 Evaluation note* Encounter Date Diagnosis Assessment Notes Treatment Notes Treatment Clinical Notes Mar, Seasonal allergic rhinitis due to pollen (ICD-10 - J30.1) [employer] Other 05-01-2023 Evaluation note* Encounter Date Diagnosis Assessment Notes Treatment Notes Treatment Clinical Notes October, Medicare annual well ness visit, subsequent (ICD-10 - Z00.00) Personalized health advice was given to the beneficiary including a written plan for screenings discussed and provided. Advanced care planning reviewed and/or information given as requested. Additional counseling was provided here today in regards to, [ ]. The above visit was performed by [ ], under direct supervision of [ ]. Document reviewed and amended by provider signed below. Healthy diet and exercise. Reviewed age-appropriate preventive testing recommended. October, Benign prostatic hyperplasia with lower urinary tract symptoms (ICD-10 - N40.1) Symptoms tolerable, no treatment necessary PSA and LAURENCE yearly October, Hypercholesterolemia (ICD-10 - E78.00) Instructed on diet and exercise.Discussed the beneficial effects of lowering cholesterol in reducing the risk for cerebrovascular and cardiovascular disease. October, Gastroesophageal ref lux disease with esophagitis without hemorrhage (ICD-10 - K21.00) Diet instructions: Smaller portions, avoid eating and laying flat, avoid eating or drinking prior to bedtime. Weight loss. October, Elevated PSA (ICD-10 - R97.20) f/u Urology but w/u negative. Likely PSA elevated due to prostatitis. October, Overweight (ICD-10 - E66.3) This patient has been instructed on a low-fat, high-fiber diet. They are instructed to reduce calories, portion sizes and snacks. It is recommended that they exercise for 30 minutes, 3-5 times weekly. October, Seasonal allergic rhinitis due to pollen (ICD-10 - J30.1) [employer] Other 04-17-2023 Hospital Discharge instructions Patient Education 09/29/2022 08:26:23 Prostate Cancer Screening Prostate Cancer Screening The prostate is a walnut-sized gland that is located below the bladder and in front of the rectum in males. The function of the prostate (prostate gland) is to add fluid to semen during ejaculation. Prostate cancer is the second most common type of cancer in men. A screening test for cancer is a test that is done before cancer symptoms start. Screening can helpto identify cancer at an early stage, when the cancer can be treated more easily. The recommended prostate cancer screening test is a blood test called the prostate-specific antigen (PSA) test. PSA is a protein that is made in the prostate. As you age, your prostate naturally produces more PSA. Abnormally high PSA levels may be caused by: Prostate cancer. An enlarged prostate that is not caused by cancer (benign prostatic hyperplasia, BPH). This condition is very common in older men. A prostate gland infection (prostatitis). Medicines to assist with hair growth, such as finasteride. Depending on the PSA results, you may need more tests, such as: A physical exam to check the size of your prostate gland. Blood and imaging tests. A procedure to remove tissue samples from your prostate gland for testing (biopsy). Who should have screening? Screening recommendations vary based on age. If you are younger than age 40, screening is not recommended. If you are age 40 54 and you have no risk factors, screening is not recommended. If you are younger than age 55, ask your health care provider if you need screening if you have oneof these risk factors: ?Being of -[place] descent. ?Having a family history of prostate cancer. If you are age 55 69, talk with your health care provider about your need for screening and how often screening should be done. If you are older than age 70, screening is not recommended. This is because the risks that screening can cause are greater than the benefits that it may provide (risks outweigh the benefits). If you are at high risk for prostate cancer, your health care provider may recommend that you have screenings more often or start screening at a younger age. You may be at high risk if you: Are older than age 55. Are -[place]. Have a father, brother, or uncle who has been diagnosed with prostate cancer. The risk may be higher if your family member's cancer occurred at an early age. What are the benefits of screening? There is a small chance that screening may lower your risk of dying from prostate cancer. The chance is small because prostate cancer is typically a slow-growing cancer, and most men with prostate cancer from a different cause. What are the risks of screening? The main risk of prostate cancer screening is diagnosing and treating prostate cancer that would never have caused any symptoms or problems (overdiagnosis and overtreatment). PSA screening cannot tell you if your PSA is high due to cancer or a different cause. A prostate biopsy is the only procedure to diagnose prostate cancer. Even the results of a biopsy may not tell you if your cancer needs nicolas treated. Slow-growing prostate cancer may not need any treatment other than monitoring, so diagnosing and treating it may cause unnecessary stress or other side effects. A prostate biopsy may also cause: Infection or fever. A false negative. This is a result that shows that you do not have prostate cancer when you actually do have prostate cancer. Questions to ask your health care provider When should I start prostate cancer screening? What is my risk for prostate cancer? How often do I need screening? What type of screening tests do I need? How do I get my test results? What do my results mean? Do I need treatment? Contact a health care provider if: You have difficulty urinating. You have pain when you urinate or ejaculate. You have blood in your urine or semen. You have pain in your back or in the area of your prostate. You have trouble getting or maintaining an erection (erectile dysfunction, ED). Summary Prostate cancer is a common type of cancer in men. The prostate (prostate gland) is located below the bladder and in front of the rectum. This gland adds fluid to semen during ejaculation. Prostate cancer screening may identify cancer at an early stage, when the cancer can be treated more easily. The prostate-specific antigen (PSA) test is the recommended screening test for prostate cancer. Discuss the risks and benefits of prostate cancer screening with your health care provider. If you are age 70 or older, screening is likely to lead to more risks than benefits (risks outweigh the benefits). This information is not intended to replace advice given to you by your health care provider. Make sure you discuss any questions you have with your health care provider. Document Released: 03/12/2018 Document Revised: 05/14/2018 Document Reviewed: 03/12/2018 [employer] Patient Education 2020 [email or web address] Follow Up Care 04/03/2022 11:13:30 With:IRVIN HARVEY, Jose Arias, SAMSON Address: [facility] [address] , [place] [address]- When: Unknown [facility] 09-13-2022 Hospital Discharge instructions Patient Education 02/25/2022 09:34:30 [facility] - Cystoscopy Discharge Instructions (CUSTOM) Cystoscopy Voiding after the procedure: there may be some pain, burning, urgency, frequency and blood tinged urine following the procedure. These symptoms usually resolve within 2-5 days. Drink the amount of fluid it takes to keep the urine pink to yellow or clear in color. Drinking enough water and fluids will help to ease any discomfort after your procedure. If you are having problems that seem out of the ordinary, please call. If unable to contact your physician and you feel it is an emergency, go to the nearest emergency room or call 911 Diet you may resume your normal diet. Activity you may resume your normal activities Call if you have a fever over 100 degrees. Follow Up Care 02/10/2022 11:56:57 With:Jose CAGE Address: [facility] [address], [place] [address]- Business (1) When: Unknown Comments:Keep scheduled appointment [facility] Future Appointments Appointment Date:02/18/2022 07:00:00 AM Scheduled Provider: Location:.[facility] Appointment Type:CT Abdomen/Pelvis Combo (FT) Appointment Date:02/19/2022 10:15:00 AM Scheduled Provider: Location:[facility] Appointment Type:Urology CALL PAT FT Appointment Date:02/25/2022 09:00:00 AM Scheduled Provider: Location:[facility] Appointment Type:Urology FT Future Scheduled Tests Radiology* CT Abdomen/Pelvis w/ Contrast 02[facility]18/[facility] Future Appointments Appointment Date:02/19/2022 10:15:00 AM Scheduled Provider: Location:[facility] Appointment Type:Urology CALL PAT FT Appointment Date:02/25/2022 09:00:00 AM Scheduled Provider: Location:[facility] Appointment Type:Urology FT [facility] Future Appointments Appointment Date:04/06/2023 11:15:00 AM Scheduled Provider:Jose CAGE MD Location:[facility] Appointment Type:URO Office Visit Diagnostic Tests Pending * PSA Free & Total 09/29/22 [facility] evaluation noteNo assessment information available [facility] Work Phone: Evaluation noteNo InformationNort Audingo Other History general Narrative - Reported* Type Description Date Medical History Hypercholesterolemia Medical History Elevated PSA Medical History Benign prostatic hyp erplasia with lower urinary tract symptoms Medical History Chronic throat clearing Medical History Gastroesophageal ref lux disease with esophagitis without hemorrhage Medical History Allergic rhinitis due to pollen Medical History Lumbar spondylosis Medical History Arthritis of left shoulder regio n Medical History Hyperlipidemia type II Surgical History APPENDECTOMY Surgical History RUPTURED RIGHT CHEST MUSCLE Surgical History LEFT WRIST SURGERY Surgical History COLONOSCOPY Hospitalization History SEE SURGICAL HX [employer] Other Hospital course Narrative No data available for this section [facility] No data available for this section [facility] No data available for this section [facility] Reason *FU 05/19 Referral for constant clearing throat, post nasal drainage and GERD Diagnosis 1 Gastroesophageal ref lux disease with esophagitis without hemorrhage (K21.00) Diagnosis 2 Chronic throat clear ing (R09.89) Diagnosis 3 Allergic rhinitis du e to pollen (J30.1) [facility]erral Organization [facility] Referring Provider First Name Milo Referring Provider Last Name Jose Referring Provider Specialty Internal Nm dicine Referred Organization [facility] Referred Provider Lacey Avila Referred Address ,[place], [place],[address] Referred Provider Specialty Ear, Nose an d Throat Referral Priority Routine General Notes Mr. Valentin is being r eferred for chronic build up of phlegm. This has resulted in constant clearing of his throat w/ a rattling sound during expiration. He was initiated on Justa, Flonase and PPI about 4 weeks ago with improvement, but not eradication of his symptoms. He is being referred for further evaluation of his symptoms. Concepcion Patel 05/12/2023 12:02:24 PM >received today, attachments made, notes locked, referral faxed [employer] Other Summary Purpose Family History Relationship Condition Age at Onset Recorded Date/T francesca Not Specified Diabetes mellitus Unknown Advance Directives Advance Directive Response Recorded Date/ Time Advance Directives No October 18, 2018 10:46am Chief Complaint and Reason for Visit Chief Complaint Elevated PSA Additional Source Comments (unrecognized sect ion and content) No Status Records FoundNo Status Records FoundNo Status Records FoundNo Status Records FoundNo Status Records Found INFORMATION SOURCE (unrecogn ized section and content) DATE CREATED AUTHOR 11/03/2021 [facility] DATE CREATED AUTHOR AUTHOR'S ORGANIZ ATION 03/16/2022 [facility] DATE CREATED AUTHOR AUTHOR'S ORGANIZ ATION 10/18/2022 [facility] DATE CREATED AUTHOR AUTHOR'S ORGANIZ ATION 03/04/[address] [facility] DATE CREATED AUTHOR AUTHOR'S ORGANIZ ATION 05/19/2023 [facility] EPIC Care Team (unrecognized sect ion and content) Team Status: Inactive Member Role Status Dates Milo Garcia DO Primary Care Provider Active Jose Cage MD Attending Provider Active Team Status: Active Member Role Status Dates Milo Garcia , Primary Care Provider Active Goals (unrecognized section and content) Goals may be documented in a n alternate section REASON FOR VISIT (unrecogniz ed section and content) WellnessAllergy Shotreferral to allergistcoughingupdate2 week follow upBP readings FOR RECORDS PERTAINING TO PATIENTS WHO ARE OR HAVE BEEN ENROLLED IN A CHEMICAL DEPENDENCY/SUBSTANCEABUSE PROGRAM, SOME INFORMATION MAY BE OMITTED. This clinical summary was aggregated from multiple sources. Caution should be exercised in using it in the provision of clinical care. This summary normalizes information from multiple sources, and as a consequence, information in this document may materially change the coding, format and clinical context of patient data. In addition, data may be omitted in some cases. CLINICAL DECISIONS SHOULD BE BASED ON THE PRIMARY CLINICAL RECORDS. [employer] provides no warranty or guarantee of the accuracy or completeness of information in this document.
[2023-06-24 04:07] LABS: PSA, Free 0.59 ng/mL
== END 2023-06-23 12:03 | disposition home or self-care (01) ==
PROVIDERS: PCP Internal Medicine; Visit Provider Urology
DX: R97.20 Elevated prostate specific antigen [PSA] (principal); N40.1 Benign prostatic hyperplasia with lower urinary tract symptoms
CPT/HCPCS: 36415; 84153; 84154

== ENCOUNTER 2023-10-13 15:00 | Outpatient (OUT) | payer MEDICARE, OTHER, SELFPAY ==
--- NOTE | 2023-10-13 15:17 | CT_ITS ---
[address] [address] Patient Name: PRICE ESCOTO MRN: [id number] date: 1955 Sex: M Assigned Patient Location: CT Current Patient Location: Accession/Order Number: [id number] Exam Date: 10/13/2023 15:12 Report Date: 10/14/2023 11:48 At the request of: DAYANNA LARSEN Procedure: CT lung screening low-dose EXAMINATION: CT lung screening low-dose HISTORY: nicotine dependence Z87.891 COMPARISON: 10/13/2022 TECHNIQUE: Axial, Coronal, and Sagittal images were created without the administration of IV contrast material. Dose reduction techniques were achieved by using automated exposure control and/or adjustment of mA and/or kV according to patient size and/or use of iterative reconstruction technique. FINDINGS: LUNGS: A few scattered stable punctate pulmonary nodules the largest calcified measuring 3 mm right upper lobe subpleural axial image 44 PLEURA: No mass, effusion, or pneumothorax. VASCULATURE: No abnormality. ANTONI: No mass or pathologic adenopathy. MEDIASTINUM: No mass or pathologic adenopathy. CARDIAC: No enlargement, pericardial thickening, or significant calcification. CORONARY ARTERIES: Coronary calcifications are moderate. AORTA: No aneurysm or dissection. CHEST WALL: No mass or axillary adenopathy BONES: Stable anterior T7 wedge compression fracture. New 40% anterior wedge compression fracture of the T9 vertebral body LIMITED ABDOMEN: No suspicious findings. Limited images of the upper abdomen. OTHER: Negative. CT/CT lung screening low-dose IMPRESSION: New 40% anterior wedge compression fracture of the T9 vertebral body No new pulmonary nodule or mass LUNG SCREENING: Lung-RADS Category 1 Negative. No nodules and definitely benign nodules. Continue annual screening with LDCT in 12 months. Electronically authenticated by: MAICO BARRIENTOS Date: 10/14/2023 11:48
== END 2023-10-13 15:01 | disposition home or self-care (01) ==
LOC: CT 15:01
PROVIDERS: Visit Provider Internal Medicine
DX: M48.54XA Collapsed vertebra, not elsewhere classified, thoracic region, initial encounter for fracture (principal); Z87.891 Personal history of nicotine dependence
CPT/HCPCS: 71271

== ENCOUNTER 2023-10-18 10:09 | Emergency (ER) | payer MEDICARE, OTHER, SELFPAY ==
[2023-10-18 10:15] VITALS: BP 139/87; PULSE 58; TEMP 36.6; O2SAT 98; BMI 25.8
--- OUTSIDE RECORDS SUMMARY | 2023-10-18 10:19 | XMS_ITS | CCD ---
Author Organization [facility] Care Team Providers Care Cougar Hunter Name Role Phone MILO GARCIA Primary Care Physician [phone] DO Milo Garcia Primary Care Provider MD Jose Cage Attending Provider Milo Garcia Primary Care Unavailable Fauzia, Jose Attending Unavailable Cage, Jose Admitting Unavailable Ball, Milo Unavailable JOSE, DR ALAN Admitting Unavailable [...] BALL, DR ALAN Consulting Unavailable CAGE, Jose R Attending Unavailable CAGE, Jose R Attending Unavailable CAGE, Jose R Attending Unavailable CAGE, Jose R Admitting Unavailable TIMLACEY LUCERO Attending Unavailable TIMMISLACEY Attending Unavailable BALL, MILO E Referring Unavailable Allergies Allergy Classification Reported Allergen(s) Allergy Type Date of Onset Reaction(s) Facility (5 sources) Bee/Wasp/Ant venom; Translations: [Bee Stings] Drug allergy Anaphylaxis (disorder) [facility] (1 source) Bee pollen Drug allergy (disorder) 9 [facility] Repository (1 source) patient allergy list reviewed by nurse or physicia Propensity to adverse reactions 8 Comment:Done [employer] Other (1 source) Bee Sting Drug allergy Unknown [employer] [place] Other Medications Current Medications Medication Drug Class(es) Dates Sig (Normalized) Sig (Original) benzonatate 100 mg oral capsule (2 sources) Non-narcotic Antitussive Start: 04-17-2023 take 1 capsule by mouth every eight hours Benzonatate 100 MG 1 capsule as needed Orally Three times a day for 10 days Apr, Active cefuroxime 500 mg oral tablet (1 source) Cephalosporin Antibacterial Start: 07-08-2023 take 1 tablet by mouth every twelve hours Cefuroxime Axetil 500 MG 1 tablet Orally every 12 hrs for 7 days Jun, Active diclofenac sodium 75 mg delayed release oral tablet (10 sources) Nonsteroidal Anti-inflammatory Drug Start: 10-19-2018 Diclofenac Sodium Active 75 MG PO As Directed October 19, 2018 12:00am Diclofenac Sodiu m ER PRN Not-Taking/PRN Diclofenac Sodiu m ER PRN Not-Taking fexofenadine hydrochloride 180 mg oral tablet (7 sources) Histamine-1 Receptor Antagonist Start: 04-10-2023 take 1 tablet by mouth once daily Fexofenadine HCl 180 MG 1 tablet Swallow whole with water; do not take with fruit juices. Orally Once a day for 30 days Mar, Active fluticasone propionate 0.05 mg/actuat metered dose nasal spray (7 sources) Corticosteroid Start: 04-10-2023 take 2 spray(s) nasal route once daily Fluticasone Propionate 50 MCG/ACT 2 sprays each side Nasally Once a day for 30 days Mar, Active take 2 spray(s) nasal route once daily Fluticasone Propionate 50 MCG/ACT SPRAY 2 SPRAYS INTO EACH NOSTRIL ONCE DAILY FOR 30 DAYS Active omeprazole 20 mg delayed release oral capsule (20 sources) Proton Pump Inhibitor Start: 10-19-2018 take [...] 2 tab(s), Refills(s) 0, Pharmacy: [facility]/pharmacy #[id number], 178, cm, 02/10/22 10:43:00 EDT, Height/Length Dosing, 78.5, k... Start Date: 02/10/22 Status: Ordered triamcinolone acetonide 40 mg/ml injectable suspension (17 sources) Corticosteroid Start: 10-13-2022 Kenalog-40 Mar, 60 mg Problems Active Problems Problem Classification Problem Date Documented Da te Episodic/Chronic Acute bronchitis (2 sources) Acute bronchitis; Translations: [Acute bronchitis, unspecified] Onset: 5 Episodic Disorders of lipid metabolism (20 sources) Familial hypercholesterolemia; Translations: [Pure hypercholesterolemia] Onset: 9 02-10-2022 Chronic Esophageal disorders (14 sources) Gastroesophageal reflux disease; Translations: [Esophageal reflux finding] Onset: 4 02-10-2022 Chronic Genitourinary symptoms and ill-defined conditions (1 source) Microscopic hematuria; Translations: [Asymptomatic microscopic hematuria] Onset: 3 Episodic Hyperplasia of prostate (14 sources) Benign prostatic hypertrophy with outflow obstruction; [...] [Noninfective gastroenteritis and colitis, unspecified] Episodic Osteoarthritis (10 sources) Arthritis of joint of left shoulder region; Translations: [Primary osteoarthritis, left shoulder] Chronic Other aftercare (1 source) [facility] [place] [facility] therapy; Translations: [[employer] CURRENT DRUG THERAPY] Onset: 3 Episodic Other aftercare (1 source) Long-term current use of drug therapy; Translations: [Other [place] [facility] (current[facility] drug therapy] Episodic Other circulatory disease (9 sources) Cardiovascular symptoms; Translations: [Other specified symptoms [...] 9 02-10-2022 Episodic Other upper respiratory disease (20 sources) Allergic rhinitis due to pollen; Translations: [Allergic rhinitis due to pollen] Chronic Other upper respiratory disease (5 sources) Allergic rhinitis due to pollen Chronic Other upper respiratory disease (1 source) Seasonal allergic rhinitis; Translations: [Other seasonal allergic rhinitis] Onset: 7 Chronic Other upper respiratory disease (1 source) Allergic rhinitis; Translations: [Allergic rhinitis, unspecified] Onset: 4 Chronic Spondylosis; intervertebral disc disorders; other back problems (10 sources) Lumbar spondylosis; Translations: [Spondylosis without myelopathy [...] Classification Problem Date Documented Da te Episodic/Chronic Esophageal disorders (4 sources) Esophageal disorders; Translations: [...] and Corynebacterium diphtheriae antigens (medicinal product); Translations: [Nqsyniopbf-evgnsgc-f ertussis, combined [DTP] [DtaP]] Onset: 03-03-2016 Unclassified [...] by: GERONIMO RODARTE Date: 2022-10-13 14:42 Normal [facility] Coding Summary.on 10-04-2022 Coding Summary. CD:[id number] W w+PGhlYWQ+CV1OFTQaK79 gdNDeaZ6hG6DVBNxWTjvo FNSAUPyCStHcwaRdXO9nn XNjZXJu IC8+AV3rLPWbEhtthQFlu 4L1oUL9I43bdb4oKEfbbT X8HGGwRtWvznksl9yaxFt 6IDcuNmluOyBt QOSsbM85XLR1cC23Im60q OQsnDBvs7vcsEy9PbJpGJ QmEVX1eSfoUBylf0PmDVA dF00ywPGtw9W2 TOBmdIaduGXvPzEldKV1k X0wOSqzlbclx9uzfqfnZt f4ex25yPWxc8V9qBM0R1K eucO1COLwhNSn BmhttYATfE0wouwci6fox fjmIeNfNYNjAGb4IHo5AG CvtKnlOhYiSH71DMJ7VGL ncvNaC5NdXINv sXcmOsM3f1M0Zb0FL2WGJ ggaR2IIMIAQCFtlvPX+PC 61tv11H9PpYaslSza6OYC yKQE2tUQ3cI4j TQRxWIzlm2J5kYH2B1Zbi cZfac3oy9lfXKIcFDwlF6 9jaLFdc2U8RIDtwUN8NGJ tkZwaIwUauJ53 Oyc+ZNOblCkfd8ChPuoko 2ega7lvrDs9GxlbCPKlfd UrvWgbQHR2o0HwAd1yCBX xtAQ0pUT9aU6x WmDuObQ5MJpjO713UcQip QPbKvjvB97qU6DzsCO+PH BrEcp7CXOheWhkGA8dG6X hZGRpbmctbGVm jAjpPX1xGEMgwqthAQOss R5dWNJlC0b7UyEaFzL4CK wyW1ZuMLOyznooGm22rN5 zEtGwPfS0ULxt R5ElqeD6DVQiwMMbXZwnH NH4V19yy1L8EDDkGBSuAO F8bHU2jR7prOhgchcjgLP mdDsgdmVydGlj ZDlpBAsoE681IMFvdAebI kNvZGluZyBEYXRlOiAgMD QvMjIvMjAyMzwvdGQ+PHR jRBW3tRglOZNw kMNzBNmuDa8lyEiuuMtaP S3vKXSpplobOLArcF8yKF UiwXJmnXteWI0rFAMponm zs093AuShNRL0 RBUccMQjG8NefI1zKeNtQ XZkVTOaJ1TviIRyQPvkW0 22GZmeStZ4OCQndhUgC5R sLWFsaWduOiB0 x2B0Hq9Ni7LjydajJ8Gwh BCfRzVjYcaaBJs0M6YqAy wvdHI+FV40YAUtDK26JPy 3QJD0wXtcGEzm BJYgB6KnqS5oBoItQJMiK GRkOyc+PHRhYmxlIHdpZH RoPScxMDAlJyBzdHlsZT0 xZq1wZWUdBEYj dEcrwBRbKdUrr1elYOUpA XkzLA8ctNgyA3SioEL6OR Wmk2r7Pq29M01wE6DuqSS +TLPzgQU4wTB1 gB9zXdFzBuO5LBlbH662D bAmuVUjPkagb6qbm2rboK z1ZmI1DYNjlwUzyEkpKHG 5q8OsPq68O63v IHdpZHRoPSIxNSUiIHZhb Nyoje2lwC9xBd1+PGNvbC H2wWB5oZ7yRsFzBvA9XOd sG537KjBboXPx Naowi8leq7etyLn6MdQcC QSlkaMvzQaeOWG5l4HpWi 72A5ZjaOsjj1RdQnz9dz3 4pRRss2F9kZW3 B5PeHEWsxlqdxOOnbUclC R7kPLEphtieUITslN3xUS ZwA8t5MmWkAvO2VSgmE4T kkhP0KAZinSSp ZJLzeNSRqH8nhethy9hbh msvPtNiULQnHIs5BEx7DZ RntQomGdAiZDU7IkU1OPR 3zASsaB2svXlw rzuekF5wDnk+MHJ9zNJyk XDKRT2bVlhjzTS+PHRkIH L1xVyiHSyhSNHyxH7hVTD nC4m0WnXoGlY0 IXjsL6OuqkY3HPBflDExQ RBueLHOvI5qotebz5iqvg izZjLfYSCqVHi3KKs7ONY saWduOiBsZWZ0 PgV1YGT4vZJmrB3ilMhuk mckxA3qVcy+QmlydGggRG J9GJu4N5WbGuc3BBVctMo yZP9svMIbXBwq Lv3vfWoheKhkKL6lBFPcc urhm054NnTqf9arTRYbaL DuMGglVWZ2F52vi5N4FXX sPLSoGYD3wZW5 tZ7jsLpqaelabPZgiGdsv oWbuTqiVFxtCRnuD356GQ MdeUitHaCiSWh4L0PkEys 2HNXgbVtgOT6j jZTaVAfzUm0hrXzflJvrZ W1bSDNzexwsh909LzVmu5 qfJVLwiVVdJRefNUL1V14 fl2Y0PBImJNMs JMP8sCU2sA7ydJoznbgwq GVmdDsgdmVydGljYWwtYW bqX992ZNThhIwrTlNblTo 5I3XsMre4NNUm mDuhNR1seRQpMXeqBc6zp HinfEvoMG0yUBIdvvesi3 43HkZpw5kjWZZpiDAgCVf oAPB4I39ok8C7 CMWmLCWkDTA5zTZ5nS9ze GlnbjogbGVmdDsgdmVydG idYRcfEIjdA422YVRnaUt nPlBhdGllbnQg DPquDSv4X4SqSspduCG+P N95TJJcKB42lURlfHNsl4 nkmKf6YlFgMTWwZRR4pQa bTXmfc1CjUZUc X33gfWGcn0V8LVFgsBulh TUdWhZlhLI6xC1vDQyhlx mxb6shbmiaFjnby1nbok7 2iZ63W42sJApu ZHRoPSIzMCUiIHZhbGlnb f2ibO7yPg2+PVWohBJ3gE Q2bI3sZLCuWzD7OBhjM33 9InRvcCIvPjxj u9whr3vnaDp1WhB5DIUsc uBbxVgkVLX4c8HoEd34C2 9sIHdpZHRoPSIyMCUiIHZ jlIqktb7xzU3m Ii8+XJVskFO5eNO8aB4qF vDxWmF5YGwyB618KkQwzV ZpTbnyH77yA6FmkAA+PHR qLse6DYWfiWue ZR8uiANtORkdJz7lPLR4Z kTcLpHfCOllS4KhORGadm dsldtgzWP5WROpLXHnxZ8 8Oq5ujZiaMWHb oROPpT3wckxqr8mwcdqyR tSdGGPhRGt4BTi5SMAvrQ zrFkSaHSW4QuB6XXK6xVR pbU0drVfdwggq pN5zV1PoEWSmksyiTn50s F1lAxJiHtV2BXesFgt+U0 fXHtNhYOIGEmaYGNj7M2U vWmn7DBObeTra WB4akBMsKVoaZa6bhCymj HrkZH5iEGPxtkxoVZOjzK 3oANVdjVLzvMqtPS0nVMX qrvxgw011QlQr YJO1AOZpvCMfA8JgyJ1gZ cPaAWEoPUCgO9FwxFHjWI taE041ZDcvGiF9XAFxvkK iM4YwWWTbhRia RjR1c9G5Da7yUd5ySs6cC XL8AJ31NY41oLTvr8P7jS S5V8AsJWNqfllczairjVL 6PJLnDZUagJ89 uURzBDjmQo6ml4S1k758J ZEaQFPbiZ81Vd7hsLjbRN ZimKIUkI8okseht7rqwao gIzAwMDAwMDt0 GLl1XRHlfXakHiDvBMJ9E oS8WHJ3oQVqyY4lcVglxi aorZ2dGwf+NjkgWWVhcnM 4H4FzCmf9GAZm fDelVS4frZSjURxxJz2ph XuysLoxXG0jWOXaxwoyGJ AdrN1uEVVrpWQktIttST7 bVZIkqaayt427 ZpQyUWZ8VWYjeEKbV5Ynw I6aObPnMXWqYGLeB8JulK NcYKymT690PLjpEmX7HSO tvmUbL5QzUNKe eVdwBzG3l3O3Nz9QIDdaK C71YT65uKSml1H6tQG2O1 BnBVMjogxuwamxnNL2HTI yNEQsaG85bYOp WOyjPe9vj5N2h890EFLsK EZikS43Mo7grFokOFSxtK LMeH8qiatkg3bpjritHlY aWAOrYRg8ABd7 KPSmwNhvFnRiJZK3LbU3H TI9uELpeE1hzJfrzpduqH 9wOyc+KFVhXLPmw7Kpu2J aVE85ZH91D3Ko PjwvdGFibGU+PHRhYmxlI HdpZHRoPScxMDAlJyBzdH gnUK3kYe0wJGVsVFVgbHe gpBDiVeHkt6hm YENaEUezDJ5dqVhiA1Oyi BC2MODcs4f9Em52I41xR7 JvdXA+BAHllMB7gAQ8bG6 iGsXpGcH8QHcr J289AyIqhNHeVzwpc5bps 8vdpRx7DwLpLTDqmkKtdV dnCVL4t3QmJd31S90aBIw pZHRoPSIyMCUi HGNqeUdavd8iuL3hIn1+P OXtlBQ6gEP0tF5hIsQxId P5GUffA000AtPluQFpBru gE42uA7QqnYW+ IIFeCwi4VWIivWrnEG7cz BNzNGehSk5hVEA5YrEdPx KzJIwpK6PpLXSagybxufb riFR0FKGfTUYg bO41Ky3nqBhoYb6yVSBuX QO8FGNmvLQsZ1FqvK0jHj IvXWPpSWQqO7RknNQsVNd kG600ARjkIqQ2 QMWovjGrW0QeCVYumJmpY lV5r2L9Gl7UpWswgHUgAF 1uQtGwMIk2D2GnAyd9BBY hfDrbLP1kdGDi FFaqMq8lfMsxxCbsBF4xS UYcycqdn687OmTfg2kaUE SfxRVaTJxgSYE6F75ni3B 2KUTwYBMmDVJ2 mQW8fZ8wxAzdfbszpZRbf DsgdmVydGljYWwtYWxpZ2 78XWNaiIktJnEOKxu2X1N pYbf9JNYpyDic AT7srFRmTDgbJu6nnMdge WfxYB3rWIFscollt574Qq Ehr1fhXXCiwBFvFBteOAC 0T51yq6Y9GITw ISZbLFB3jUC8eJ9sjNuut jogbGVmdDsgdmVydGljYW ufLAzgF626DIPztPbeVl9 DBrb2S6AmGxb4 YUSagIifAV2hwGHrHXvoG p5ioSiksMohXV3cVBEdji zma660ZqAnm3zaQVEbzGD qOSxlBEU5M93t s7Q2KGTgCALzFPQ8iWZ3w W6woBcohqpylEXjnEldoy PhbGsnDFomFIhuA730YXW vcDsnPlBheWVy OjwvdGQ+KY89gw92N7WkY asjOuf6BSDfVTU9hVR2yZ 4jZQWeZHkpf3I2mPM1D7P wvlNpyj5bg0mb YXBzZTog (more content not included)... Normal [facility] CBC AUTO DIFFon 10-01-2022 BASO # 0.0 103/ul Normal 0.0-0.1 [facility] Comment on above: Performed By: #### C BC #### [facility] [address] [place] [address] Dr. Claudine Foster Basophils/100 WBC (Bld) 0.5 % Normal 0.2-2.0 [facility] Comment on above: Performed By: #### C BC #### [facility] [address] [place] [address] Dr. Claudine Foster EO # 0.1 103/ul Normal 0.0-0.7 [facility] Comment on above: Performed By: #### C BC #### [facility] [address] [place] [address] Dr. Claudine Foster Eosinophils/100 WBC (Bld) 1.6 % Normal 0.9-7.0 [facility] Comment on above: Performed By: #### C BC #### [facility] [address] [place] [address] Dr. Claudine Foster Erythrocyte distribution width (RBC) [Ratio] 13.1 % Normal 11.0-15.0 [facility] Comment on above: Performed By: #### C BC #### [facility] [address] [place] [address] Dr. Claudine Foster Hematocrit (Bld) [Volume fraction] 42.3 % Normal 42.0-54.0 [facility] Comment on above: Performed By: #### C BC #### [facility] [address] [place] [address] Dr. Claudine Foster Hemoglobin (Bld) [Mass/Vol] 14.5 g/dL Normal 14.0-18.0 [facility] Comment on above: Performed By: #### C BC #### [facility] [address] [place] [address] Dr. Claudine Foster IG # 0.03 10e3/ul Normal 0.00-0.03 [facility] Comment on above: Performed By: #### C BC #### [facility] [address] [place] [address] Dr. Claudine Foster IG % 0.5 % Normal 0.0-0.5 [facility] Comment on above: Performed By: #### C BC #### [facility] [address] [place] [address] Dr. Claudine Foster LYMPH # 2.2 103/ul Normal 1.2-3.8 [facility] Comment on above: Performed By: #### C BC #### [facility] [address] [place] [address] Dr. Claudine Foster Lymphocytes/100 WBC (Bld) 34.1 % Normal 20.5-60.0 [facility] Comment on above: Performed By: #### C BC #### [facility] [address] [place] [address] Dr. Claudine Foster MANUAL DIFF REQ NO Normal [facility] Comment on above: Performed By: #### C BC #### [facility] [address] [place] [address] Dr. Claudine Foster MCH (RBC) [Entitic mass] 32.6 pg Normal 25.9-34.0 [facility] Comment on above: Performed By: #### C BC #### [facility] [address] [place] [address] Dr. Claudine Foster MCHC (RBC) [Mass/Vol] 34.3 g/dL Normal 29.9-35.2 [facility] Comment on above: Performed By: #### C BC #### [facility] [address] [place] [address] Dr. Claudine Foster MCV (RBC) [Entitic vol] 95.1 fL Critically high 80.0-94.0 [facility] Comment on above: Performed By: #### C BC #### [facility] [address] [place] [address] Dr. Claudine Foster MONO # 0.6 103/ul Normal 0.3-0.8 [facility] Comment on above: Performed By: #### C BC #### [facility] [address] [place] [address] Dr. Claudine Foster Monocytes/100 WBC (Bld) 9.1 % Normal 1.7-12.0 [facility] Comment on above: Performed By: #### C BC #### [facility] [address] [place] [address] Dr. Claudine Foster NEUT # 3.5 103/ul Normal 1.4-6.5 [facility] Comment on above: Performed By: #### C BC #### [facility] [address] [place] [address] Dr. Claudine Foster Neutrophils/100 WBC (Bld) 54.2 % Normal 43.0-75.0 [facility] Comment on above: Performed By: #### C BC #### [facility] [address] [place] [address] Dr. Claudine Foster Platelet mean volume (Bld) [Entitic vol] 9.2 fL Critically low 9.5-13.5 [facility] Comment on above: Performed By: #### C BC #### [facility] [address] [place] [address] Dr. Claudine Foster PLT 193 103/ul Normal 150-450 [facility] Comment on above: Performed By: #### C BC #### [facility] [address] [place] [address] Dr. Claudine Foster RBC 4.45 106/ul Critically low 4.70-6.10 [facility] Comment on above: Performed By: #### C BC #### [facility] [address] [place] [address] Dr. Claudine Foster WBC 6.4 103/ul Normal 4.0-11.0 [facility] Comment on above: Performed By: #### C BC #### [facility] [address] [place], [place] [id number] Dr. Claudine Foster LIPID PROFILEon 10-01-2022 CHOL-HDL RATIO NORM SEE BELOW Normal [facility] Comment on above: Result Comment: 3.3 - 4.4 LOW RISK 4.4 - 7.1 AVERAGE RISK 7.1 - 11.0 MODERATE RISK >11.0 HIGH RISK Performed By: #### B MP, LIPID #### [facility] [address] [address] [address] Claudine Foster Cholesterol [Mass/Vol] 199 mg/dL Normal <=200 [facility] Comment on above: Performed By: #### B MP, LIPID #### [facility] [address] [address] [address] Claudine Foster Cholesterol in HDL [Mass/Vol] 60 mg/dL Normal 40-60 [facility] Comment on above: Performed By: #### B MP, LIPID #### [facility] [address] [address] [address] Claudine Foster Cholesterol in LDL [Mass/Vol] 126.8 mg/dL Normal [facility] Comment on above: Performed By: #### B MP, LIPID #### [facility] [address] [address] [address] Claudine Foster Cholesterol.total/Chol esterol in HDL [Mass ratio] 3.3 {ratio} Normal [facility] Comment on above: Performed By: #### B MP, LIPID #### [facility] [address] [address] [address] Claudine Foster HDL NORMAL > or = 60 mg/dl - LO W CARDIOVASCULAR RISK <40 mg/dl - HIGH CARDIOVASCULAR RISK Normal [facility] Comment on above: Performed By: #### B MP, LIPID #### [facility] [address] [address] [address] Claudine Foster LDL CALC NORMAL SEE BELOW Normal [facility] Comment on above: Result Comment: <100 mg/dl OPTIMAL 100 - 129 mg/dl NEAR OR ABOVE OPTIMAL 130 - 159 mg/dl BORDERLINE HIGH 160 - 189 mg/dl HIGH >190 mg/dl VERY HIGH Performed By: #### B MP, LIPID #### [facility] [address] [address] [address] Claudine Foster Triglyceride [Mass/Vol] 61 mg/dL Normal <=150 [facility] Comment on above: Performed By: #### B MP, LIPID #### [facility] [address] [address] [address] Claudine Foster VLDL CALC 12.2 mg/dL Normal [facility] Comment on above: Performed By: #### B MP, LIPID #### [facility] [address] [place] [address] Dr. Claudine Foster PROF CHEM 8 (BAS METB)on Anion gap [Moles/Vol] 12.1 mmol/L Normal [facility] Comment on above: Performed By: #### B MP, LIPID #### [facility] [address] [place] [address] Dr. Claudine Foster Calcium [Mass/Vol] 9.0 mg/dL Normal 8.5-10.1 [facility] Comment on above: Performed By: #### B MP, LIPID #### [facility] [address] [place] [address] Dr. Claudine Foster Chloride [Moles/Vol] 106 mmol/L Normal 98-107 [facility] Comment on above: Performed By: #### B MP, LIPID #### [facility] [address] [place] [address] Dr. Claudine Foster CO2 [Moles/Vol] 27.4 mmol/L Normal 21.0-32.0 [facility] Comment on above: Performed By: #### B MP, LIPID #### [facility] [address] [place] [address] Dr. Claudine Foster Creatinine [Mass/Vol] 0.92 mg/dL Normal 0.70-1.30 [facility] Comment on above: Performed By: #### B MP, LIPID #### [facility] [address] [place] [address] Dr. Claudine Foster EGFR-AF [place]IZ[place] >60 Normal >=60 [facility] Comment on above: Performed By: #### B MP, LIPID #### [facility] [address] [place] [address] Dr. Claudine Foster EGFR-NON AF [place]IZ[place] >60 Normal >=60 [facility] Comment on above: Performed By: #### B MP, LIPID #### [facility] [address] [place] [address] Dr. Claudine Foster Glucose [Mass/Vol] 93 mg/dL Normal 74-106 [facility] Comment on above: Performed By: #### B MP, LIPID #### [facility] [address] [address] [address] Claudine Foster Potassium [Moles/Vol] 4.4 mmol/L Normal 3.5-5.1 [facility] Comment on above: Performed By: #### B MP, LIPID #### [facility] [address] [address] [address] Claudine Foster Sodium [Moles/Vol] 141 mmol/L Normal 136-145 [facility] Comment on above: Performed By: #### B MP, LIPID #### [facility] [address] [address] [address] Claudine Foster Urea nitrogen [Mass/Vol] 19.0 mg/dL Critically high 7.0-18.0 [facility] Comment on above: Performed By: #### B MP, LIPID #### [facility] [address] [place] [address] Dr. Claudine Foster Urea nitrogen/Creatinine [Mass ratio] 20.6 mg/mg Normal [facility] Comment on above: Performed By: #### B MP, LIPID #### [facility] [address] [place] [address] Dr. Claudine Foster Ambulatory Visit Summaryon 0 09-29-2022 Ambulatory Visit Summary PRAVEEN VALENTIN :1955 Visit Date:09/29/2022 Ambulatory Visit Instructions Your Diagnosis Elevated PSA BPH with urinary obstruction Asymptomatic microscopic hematuria Tests Performed Urnls Dip Stick Auto w/o Microscopy POC [address] Your Care Team Attending Physician - AFUZIA HARVEY, Jose Arias Primary Care Physician - MILO GARCIA DO This Is Your Medications List Contact prescribing physician if questions or concerns omeprazole (omeprazole 20 mg Cap-DR) Procedures Performed Cystoscopy (02/25/2022), Appendectomy, Colonoscopy, Manipulation of deviated nasal septum, Procedure on wrist. Discharge Vitals Heart Rate (Peripheral) 68 Respiratory Rate 16 Blood Pressure 132/74 Height 178 cm Height 70 in Weight 82 kg Weight 180.4 lb BMI 25.88 What to do next Scheduled Follow-Up Appointments Thursday 11:15 AM EDT With: FAUZIA HARVEY, Jose Arias Where: [facility] [place] Normal [facility] PSA Totalon 09-29-2022 Prostate specific Ag [Mass/Vol] 2.0 ng/mL Normal 0.1-3.5 [facility] Comment on above: Result Comment: The concentration of PSA determined by different manufacturers can vary due to differences in assay methods and reagent specificity. Values obtained from different assay methods cannot be used interchangeably. The methodology used for this result was chemiluminescence using [employer] PSA reagent. Performed By: #### 1 [id number] #### [facility] [address] [place] [address] Patient Educationon 09-30-19 Patient Education Oncology Prostate [...] of these risk factors: ? Being of -[place] descent. ? Having a family history of [...] Are older than age 55. ? Are -[place]. ? Have a father, brother, or uncle [...] R (more content not included)... Normal [facility] Urology Office/Clinic Noteon 09-29-2022 Urology Office/Clinic Note [...] are abnormal. Pt does have access to [facility] Portal, knows results will be posted later [...] Both neg. CT AP w con 02/18/22 [facility] - No acute pathology in the abdomen or pelvis. Cysto 02/25/22 - No bladder tumors. (Hematuria workup 02/2022 was neg.) UA today neg for blood. Follow-up With When Contact Information FAUZIA HARVEY, Jose Arias, URL [facility] [address], [place] [address]- Additional Instructions: 6 mos PSA, LAURENCE Patient [...] negative Immunizations Vaccine Date Status SARS-CoV-2 (COVID-19) [id number] 05/07/2022 Recorded SARSCoV2 mRNA(pkfobzefg-gixj-e betoros) (more content not included)... Normal [facility] Comment on above: Result Comment: Elec tronically Signed By: Jose CAGE MD\.br\Date and Time Signed: 09/29/22 11:40 EDT\.br\Electronically Co-Signed By: Cantu, Kari P\.br\Date and Time Co-Signed: 09/29/22 11:37 EDT Lab Reportson 04-03-2022 Lab Reports [id number]:127 Normal [facility] Lab Reportson 04-02-2022 Lab Reports [id number]:127 Normal [facility] PSA, FREE AND TOTAL RATIOon 04-02-2022 % Free PSA 22.0 % Normal [facility] Comment on above: Result Comment: The [...] men. Performed By: #### P SAFREE #### [facility] [address] [place] [address] Dr. Claudine Foster Prostate specific Ag [Mass/Vol] 2.0 ng/mL Normal 0.0-4.0 [facility] Comment on above: Result Comment: Gómez LITTLE methodology. . According to the [employer], Serum PSA should decrease and [...] disease. Performed By: #### P SAFREE #### [facility] [address] [place] [address] Dr. Claudine Foster PSA, Free 0.44 ng/mL Normal N/A [facility] Comment on above: Result Comment: Gómez LITTLE methodology. Performed By: #### P SAFREE #### [facility] [address] [address] [address] Claudine Foster Creatinine (Bld) [Mass/Vol]O rdered By: Jose Cage on 03-04-2022 Creatinine [Mass/Vol] 1.0 mg/dL 0.6-1.3 [facility] Comment on above: ER/ESD physician is notified/shown all ISTAT results. Critical values may be confirmed by laboratory testing if deemed necessary by ER attending doctor. ISTAT XRay CREon 03-04-2022 Creatinine [Mass/Vol] 1.0 mg/dL Normal 0.6-1.3 [facility] Comment on above: Result Comment: ER/E SD physician is notified/shown all ISTAT results. Critical values may be confirmed by laboratory testing if deemed necessary by ER attending doctor. Performed By: #### I SCRE #### [address] Point of Care testing , ISTAT GFR ( > 60 Normal [facility] Comment on above: Result Comment: GFR estimated reference range: According to KDOQI guidelines, <60 ml/min/1.73m2 is sufficient to diagnose a patient with chronic kidney disease. PERFORMED BY: [place] [address] PATHOLOGIST SOCIAL INSURANCE SPECIALIST DADA COOK M.D. Performed By: #### I SCRE #### [address] Point of Care testing , ISTAT GFR (Non- Am > 60 Normal [facility] Comment on above: Performed By: #### I SCRE #### [address] Point of Care testing , MR prostate wo/w conon 03-04 MR prostate wo/w con [facility] Main [place] [address] [place] [address] MRI Report Signed Patient: Praveen Valentin MR#: [id number] 1 : 1955 Acct:[id number] Age/Sex: 66 / M ADM Date: 03/04/22 Loc: MR Room: Type: [facility] Attending Dr: Jose Cage MD Copies to: [...] Barakat Jr., D.O.03/04/2022 3:29 PM Dictation Location: [place] [address] Transcribed By: [facility] 03/04/22 1529 Dictated By: Tez Barakat Jr, DO 03/04/22 1524 Signed By: 03/04/22 1529 [facility] No Panel InformationOrdered By: Jose Cage on 03-04-2022 POC Estimated GFR > 60 [facility] Comment on above: GFR estimated refere nce range: According to KDOQI guidelines, <60 ml/min/1.73m2 is sufficient to diagnose a patient with chronic kidney disease. POC Estimated GFR Non- Amer > 60 [facility] CHEMISTRYOrdered By: SYSTEM SYSTEM on 02-11-2022 Creatinine [Mass/Vol] 1.0 mg/dL Normal 0.5 - 1.3 mg/dL [facility] Remisol GFR/1.73 sq M.predicted among blacks MDRD (S/P/Bld) [Vol rate/Area] mL/min/1.73 m2 Normal >=59mL/min/1. 73 m2 [facility] Chem S GFR/1.73 sq M.predicted among non-blacks MDRD (S/P/Bld) [Vol rate/Area] mL/min/1.73 m2 Normal >=59mL/min/1. 73 m2 [facility] Chem S CBC AUTO DIFFon 01-14-2022 BASO # 0.1 103/ul Normal 0.0-0.1 [facility] Comment on above: Performed By: #### C BC #### [facility] [address] [place] [address] Dr. Claudine Foster Basophils/100 WBC (Bld) 0.5 % Normal 0.2-2.0 [facility] Comment on above: Performed By: #### C BC #### [facility] [address] [place] [address] Dr. Claudine Foster EO # 0.1 103/ul Normal 0.0-0.7 [facility] Comment on above: Performed By: #### C BC #### [facility] [address] [place] [address] Dr. Claudine Foster Eosinophils/100 WBC (Bld) 0.8 % Critically low 0.9-7.0 [facility] Comment on above: Performed By: #### C BC #### [facility] [address] [place] [address] Dr. Claudine Foster Erythrocyte distribution width (RBC) [Ratio] 12.9 % Normal 11.0-15.0 [facility] Comment on above: Performed By: #### C BC #### [facility] [address] [place] [address] Dr. Claudine Foster Hematocrit (Bld) [Volume fraction] 42.1 % Normal 42.0-54.0 [facility] Comment on above: Performed By: #### C BC #### [facility] [address] [place] [address] Dr. Claudine Foster Hemoglobin (Bld) [Mass/Vol] 14.6 g/dL Normal 14.0-18.0 [facility] Comment on above: Performed By: #### C BC #### [facility] [address] [place] [address] Dr. Claudine Foster IG # 0.05 10e3/ul Critically high 0.00-0.03 [facility] Comment on above: Performed By: #### C BC #### [facility] [address] [place] [address] Dr. Claudine Foster IG % 0.5 % Normal 0.0-0.5 [facility] Comment on above: Performed By: #### C BC #### [facility] [address] [place] [address] Dr. Claudine Foster LYMPH # 2.0 103/ul Normal 1.2-3.8 [facility] Comment on above: Performed By: #### C BC #### [facility] [address] [place] [address] Dr. Claudine Foster Lymphocytes/100 WBC (Bld) 20.5 % Normal 20.5-60.0 [facility] Comment on above: Performed By: #### C BC #### [facility] [address] [place] [address] Dr. Claudine Foster MANUAL DIFF REQ NO Normal [facility] Comment on above: Performed By: #### C BC #### [facility] [address] [place] [address] Dr. Claudine Foster MCH (RBC) [Entitic mass] 33.6 pg Normal 25.9-34.0 [facility] Comment on above: Performed By: #### C BC #### [facility] [address] [place] [address] Dr. Claudine Foster MCHC (RBC) [Mass/Vol] 34.7 g/dL Normal 29.9-35.2 [facility] Comment on above: Performed By: #### C BC #### [facility] [address] [place] [address] Dr. Claudine Foster MCV (RBC) [Entitic vol] 97.0 fL Critically high 80.0-94.0 [facility] Comment on above: Performed By: #### C BC #### [facility] [address] [place] [address] Dr. Claudine Foster MONO # 0.8 103/ul Normal 0.3-0.8 [facility] Comment on above: Performed By: #### C BC #### [facility] [address] [address] [address] Claudine Foster Monocytes/100 WBC (Bld) 7.6 % Normal 1.7-12.0 [facility] Comment on above: Performed By: #### C BC #### [facility] [address] [address] [address] Claudine Foster NEUT # 6.9 103/ul Critically high 1.4-6.5 [facility] Comment on above: Performed By: #### C BC #### [facility] [address] [address] [address] Claudine Foster Neutrophils/100 WBC (Bld) 70.1 % Normal 43.0-75.0 [facility] Comment on above: Performed By: #### C BC #### [facility] [address] [place] [address] Dr. Claudine Foster Platelet mean volume (Bld) [Entitic vol] 9.0 fL Critically low 9.5-13.5 [facility] Comment on above: Performed By: #### C BC #### [facility] [address] [place] [address] Dr. Claudine Foster PLT 191 103/ul Normal 150-450 [facility] Comment on above: Performed By: #### C BC #### [facility] [address] [address] [address] Claudine Foster RBC 4.34 106/ul Critically low 4.70-6.10 [facility] Comment on above: Performed By: #### C BC #### [facility] [address] [place] [address] Dr. Claudine Foster WBC 9.9 103/ul Normal 4.0-11.0 [facility] Comment on above: Performed By: #### C BC #### [facility] [address] [place] [address] Dr. Claudine Foster LIPID PROFILEon 01-14-2022 CHOL-HDL RATIO NORM SEE BELOW Normal [facility] Comment on above: Result Comment: 3.3 - 4.4 LOW RISK 4.4 - 7.1 AVERAGE RISK 7.1 - 11.0 MODERATE RISK >11.0 HIGH RISK Performed By: #### B MP, LIPID #### [facility] [address] [address] [address] Claudine Foster Cholesterol [Mass/Vol] 195 mg/dL Normal <=200 [facility] Comment on above: Performed By: #### B MP, LIPID #### [facility] [address] [address] [address] Claudine Foster Cholesterol in HDL [Mass/Vol] 68 mg/dL Critically high 40-60 [facility] Comment on above: Performed By: #### B MP, LIPID #### [facility] [address] [place] [address] Dr. Claudine Foster Cholesterol in LDL [Mass/Vol] 116.6 mg/dL Normal [facility] Comment on above: Performed By: #### B MP, LIPID #### [facility] [address] [place] [address] Dr. Claudine Fsoter Cholesterol.total/Chol esterol in HDL [Mass ratio] 2.9 {ratio} Normal [facility] Comment on above: Performed By: #### B MP, LIPID #### [facility] [address] [place] [address] Dr. Claudine Foster HDL NORMAL > or = 60 mg/dl - LO W CARDIOVASCULAR RISK <40 mg/dl - HIGH CARDIOVASCULAR RISK Normal [facility] Comment on above: Performed By: #### B MP, LIPID #### [facility] [address] [place] [address] Dr. Claudine Foster LDL CALC NORMAL SEE BELOW Normal [facility] Comment on above: Result Comment: <100 mg/dl OPTIMAL 100 - 129 mg/dl NEAR OR ABOVE OPTIMAL 130 - 159 mg/dl BORDERLINE HIGH 160 - 189 mg/dl HIGH >190 mg/dl VERY HIGH Performed By: #### B MP, LIPID #### [facility] [address] [place] [address] Dr. Claudine Foster Triglyceride [Mass/Vol] 52 mg/dL Normal <=150 [facility] Comment on above: Performed By: #### B MP, LIPID #### [facility] [address] [place] [address] Dr. Claudine Foster VLDL CALC 10.4 mg/dL Normal [facility] Comment on above: Performed By: #### B MP, LIPID #### [facility] [address] [address] [address] Claudine Foster PROF CHEM 8 (BAS METB)on Anion gap [Moles/Vol] 13.3 mmol/L Normal [facility] Comment on above: Performed By: #### B MP, LIPID #### [facility] [address] [place] [address] Dr. Claudine Foster Calcium [Mass/Vol] 8.8 mg/dL Normal 8.5-10.1 [facility] Comment on above: Performed By: #### B MP, LIPID #### [facility] [address] [place] [address] Dr. Claudine Foster Chloride [Moles/Vol] 105 mmol/L Normal 98-107 [facility] Comment on above: Performed By: #### B MP, LIPID #### [facility] [address] [place] [address] Dr. Claudine Foster CO2 [Moles/Vol] 26.1 mmol/L Normal 21.0-32.0 [facility] Comment on above: Performed By: #### B MP, LIPID #### [facility] [address] [place] [address] Dr. Claudine Foster Creatinine [Mass/Vol] 0.83 mg/dL Normal 0.70-1.30 [facility] Comment on above: Performed By: #### B MP, LIPID #### [facility] [address] [place] [address] Dr. Claudine Foster EGFR-AF [place] CITIZ[place] >60 Normal >=60 [facility] Comment on above: Performed By: #### B MP, LIPID #### [facility] [address] [place] [address] Dr. Claudine Foster EGFR-NON AF [place]IZ[place] >60 Normal >=60 [facility] Comment on above: Performed By: #### B MP, LIPID #### [facility] [address] [address] [address] Claudine Foster Glucose [Mass/Vol] 97 mg/dL Normal 74-106 [facility] Comment on above: Performed By: #### B MP, LIPID #### [facility] [address] [address] [address] Claudine Foster Potassium [Moles/Vol] 4.4 mmol/L Normal 3.5-5.1 [facility] Comment on above: Performed By: #### B MP, LIPID #### [facility] [address] [address] [address] Claudine Foster Sodium [Moles/Vol] 140 mmol/L Normal 136-145 [facility] Comment on above: Performed By: #### B MP, LIPID #### [facility] [address] [address] [address] Claudine Foster Urea nitrogen [Mass/Vol] 12.0 mg/dL Normal 7.0-18.0 [facility] Comment on above: Performed By: #### B MP, LIPID #### [facility] [address] [address] [address] Claudine Foster Urea nitrogen/Creatinine [Mass ratio] 14.5 mg/mg Normal [facility] Comment on above: Performed By: #### B MP, LIPID #### [facility] [address] [address] [address] Sinus w/o Contrast*on [...] by Nikolai Garcia on 11/01/2021 1329 Normal [facility] Specialist Vital Signs Date Time Vital Sign Value Performing Clinician Facility 07-08-2023 12:15-0500 Body height 177.8 cm Milo Ball Other [facility] Other 07-08-2023 12:15-0500 Body mass index (BMI) [Ratio] 26.69 kg/m2 Milo Ball Other [facility] Other 07-08-2023 12:15-0500 Body weight 84.37 kg Milo Ball Other [facility] Other 05-11-2023 14:00-0500 Body height 177.8 cm Milo Ball Other [facility] Other 05-11-2023 14:00-0500 Body mass index (BMI) [Ratio] 26.71 kg/m2 Milo Ball Other [facility] Other 05-11-2023 14:00-0500 Body weight 84.46 kg Milo Ball Other [facility] Other 05-11-2023 14:00-0500 Diastolic blood pressure 100 mm[Hg] Milo Ball Other [facility] Other 05-11-2023 14:00-0500 Respiratory rate 12 /min Milo Ball Other [facility] Other 05-11-2023 14:00-0500 Systolic blood pressure 153 mm[Hg] Milo Ball Other [facility] Other 04-10-2023 11:00-0400 Body height 177.8 cm Milo Ball Other [facility] Other 04-10-2023 11:00-0400 Body mass index (BMI) [Ratio] 26.31 kg/m2 Milo Ball Other [facility] Other 04-10-2023 11:00-0400 Body weight 83.19 kg Milo Ball Other [facility] Other 04-10-2023 11:00-0400 Diastolic blood pressure 81 mm[Hg] Milo Ball Other [facility] Other 04-10-2023 11:00-0400 Systolic blood pressure 120 mm[Hg] Milo Ball Other [facility] Other 10-13-2022 12:00-0400 Body height 177.8 cm Milo Ball Other [facility] Other 10-13-2022 12:00-0400 Body mass index (BMI) [Ratio] 26.89 kg/m2 Milo Ball Other [facility] Other 10-13-2022 12:00-0400 Body weight 85 kg Milo Ball Other [facility] Other 10-13-2022 12:00-0400 Diastolic blood pressure 86 mm[Hg] Milo Ball Other [facility] Other 10-13-2022 12:00-0400 SaO2% (BldA) [Mass fraction] 95 % Milo Garcia Other [facility] Other 10-13-2022 12:00-0400 Systolic blood pressure 148 mm[Hg] Milo Garcia Other [facility] Other 09-29-2022 10:51-0400 Blood Pressure Location Josecresencio CAGE [facility] 09-29-2022 10:51-0400 Diastolic blood pressure 74 mm[Hg] Jose CAGE [facility] 09-29-2022 10:51-0400 Heart rate 68 /min Josecresencio CAGE [facility] 09-29-2022 10:51-0400 Respiratory rate 16 /min Jose CAGE [facility] 09-29-2022 10:51-0400 Systolic blood pressure 132 mm[Hg] Jose CAGE [facility] 03-04-2022 07:14-0400 Body height 177.8 cm DO Milo Ball Work Phone: [facility] 03-04-2022 07:14-0400 Body weight 78.5 kg DO Milo Ball Work Phone: [facility] Encounters Encounter Date Encounter Type Care Provider Facility Start: 07-13-2023 End: 07-13-2023 ambulatory LACEY Levy KRYSTIANMIS Not Available Start: 07-08-2023 End: 07-08-2023 ambulatory Milo Jose Other [facility] Other Start: 07-08-2023 Office outpatient vi sit 15 minutes Milo Jose [facility] Start: 06-30-2023 End: 06-30-2023 ambulatory Milo Ball Other [facility] Other Start: 06-30-2023 Telephone encounter Milo Garcia [facility] Start: 05-22-2023 End: 05-22-2023 ambulatory Milo Garcia Other [facility] Other Start: 05-22-2023 Telephone encounter Milo Garcia [facility] Start: 05-18-2023 End: 05-18-2023 ambulatory LACEY AVILA Not Available Start: 05-11-2023 End: 05-11-2023 ambulatory Milo Garcia Other [facility] Other Start: 05-11-2023 Office outpatient vi sit 15 minutes Milo Garcia [facility] Start: 04-27-2023 End: 04-27-2023 ambulatory Milo Garcia Other [facility] Other Start: 04-27-2023 Telephone encounter Miol Garcia [facility] Start: 04-17-2023 End: 04-17-2023 ambulatory Milo Garcia Other [facility] Other Start: 04-17-2023 Telephone encounter Milo Garcia [facility] Start: 04-10-2023 End: 04-10-2023 ambulatory Milo Garcia Other [facility] Other Start: 04-10-2023 Office outpatient vi sit 15 minutes Milo Jose [facility] Start: 03-16-2023 End: 03-16-2023 ambulatory Milo Jose Other [facility] Other Start: 03-16-2023 Nursing evaluation o f patient and report Milo Garcia [facility] Start: 10-13-2022 Patient encounter procedure Milo Garcia [facility] Start: 10-13-2022 End: 10-14-[address] MILO GARCIA [facility] [employer] Other Start: 10-01-2022 End: 10-02-[address] MILO GARCIA Facility: Start: 09-29-2022 End: 09-30-2022 ambulatory Jose CAGE Facility:[facility] Start: 09-29-2022 End: 09-30-2022 ambulatory Jose CAGE Facility:[facility] Start: 09-29-2022 End: 09-29-2022 Patient encounter procedure Jose CAGE [facility] Start: 04-01-2022 End: 04-02-[address] JOSE CAGE . Facility: Start: 03-04-2022 End: 03-04-2022 ambulatory Milo Garcia Facility:[facility] Start: 03-04-2022 End: 03-04-2022 Patient encounter procedure DO Milo Garcia Work Phone: [facility] [place] Start: 02-25-2022 End: 02-25-2022 Patient encounter procedure Jose CAGE [facility] Start: 02-18-2022 End: 02-18-2022 Patient encounter procedure Jose CAGE [facility] Start: 02-11-2022 End: 02-11-2022 Patient encounter procedure Jose CAGE [facility] Start: 01-15-2022 Adult health examination Milo Garcia Other [facility] Other Start: 01-14-2022 End: 01-15-[address] MILO GARCIA Facility:[facility] Procedures Date Procedure Procedure Detail Performing Clinician Start: 03-04-2022 MR prostate wo/w con DO Milo Garcia Work Phone: Start: 02-25-2022 Cystoscopy Jose TRUJILLO Start: 01-14-[address] BRINA GARCIA Comment on above: Performed By: #### P [facility] #### [facility] [address] [address] [address] Claudine Foster Start: 09-28-2018 Screening for malign ant neoplasm of colon Milo Garcia Other Start: 09-28-2018 Screening for malign ant neoplasm of prostate Milo Garcia Other Start: 06-12-2015 Screening for malign ant neoplasm of colon Milo Garcia Other Start: 08-05-2013 General examination of patient Milo Garcia Other Start: 08-01-2013 Hyperlipidemia screening Milo Garcia Other Appendectomy Jose CAGE Colonoscopy Josecresencio CAGE Depression screening Ada Garcia Other Manipulation of disp laced nasal septum Jose CAGE Procedure on wrist Jose RASHEED Screening for malign ant neoplasm of prostate Milo Garcia Other Plan of Treatment Date Care Activity Detail Author Start: 07-10-2023 ambulatory Ambulatory Facility:[facility] Immunizations Immunization Date Immunization Notes Care Provider Gerhard marquez 05-07-2022 SARS-CoV-2 (COVID-19 ) [id number] Josecresencio CAGE [facility] 04-08-2022 influenza virus vaccine, split virus (incl. purified surface antigen) Milo Garcia Other [facility] Other 10-28-2021 COVID-19 Pfizer Milo Figueroa aidan Other [facility] Other 10-28-2021 SARS-CoV-2 mRNA (vsvzfcrouze-gbcv-alxmv se) vaccine Josecresencio CAGE [facility] 04-16-2021 influenza virus vaccine, unspecified formulation Jose CAGE [facility] 04-02-2021 SARS-CoV-2 (COVID-19 ) mRNA BNT-162b2 vax Jose CAGE [facility] 09-04-2020 SARS-CoV-2 (COVID-19 ) mRNA BNT-162b2 vax Jose CAGE [facility] 08-13-2020 SARS-CoV-2 (COVID-19 ) mRNA BNT-162b2 vax Jose CAGE [facility] 03-13-2020 influenza virus vaccine, split virus (incl. purified surface antigen) Milo Garcia Other [facility] Other 03-13-2020 influenza virus vaccine, unspecified formulation Joes CAGE [facility] 09-30-2019 pneumococcal polysaccharide vaccine, 23 valent Milo Garcia Other [facility] Other 05-02-2019 influenza virus vaccine, split virus (incl. purified surface antigen) Milo Garcia Other [facility] Other 09-28-2018 pneumococcal conjuga te vaccine, 13 valent Josecresencio CAGE [facility] 09-28-2018 pneumococcal Conjuga te, unspecified formulation; Translations: [Need for prophylactic vaccination against Streptococcus pneumoniae (pneumococcus)] Milo Garcia Other [facility] Other 03-24-2018 influenza virus vaccine, split virus (incl. purified surface antigen) Milo Garcia Other [facility] Other 03-15-2018 influenza virus vaccine, unspecified formulation Jose CAGE [facility] 03-15-2018 tetanus toxoid, redu lillian diphtheria toxoid, and acellular pertussis vaccine, adsorbed Jose CAGE [facility] 03-03-2016 diphtheria, tetanus toxoids and acellular pertussis vaccine, unspecified formulation Milo Ball Other [facility] Other 03-03-2016 tetanus toxoid, redu lillian diphtheria toxoid, and acellular pertussis vaccine, adsorbed Jose CAGE [facility] Payers Date Payer Category Payer Self-pay [id number] 1961 Medicare [id number] 1961 Unknown [id number] 1955 Unknown [id number] 2.16.84 [id number] 1955 Unknown [id number] 2.16.84 [id number] 1955 Unknown [id number] 2.16.84 [id number] 1955 Unknown [id number] 2.16.84 [id number] 1955 Unknown [id number] 2.16.8 [id number] 1955 Unknown [id number] 2.16.8 [id number] 1955 Unknown [id number] 2.16.8 [id number] 1955 Unknown [id number] 2.16.84 [id number] 1955 Unknown [id number] Unknown [id number] Social History Date Type Detail Facility Start: 02-10-2022 Tobacco smoking status Smoker (findi ng) [facility] Sex Assigned At Male [facility] Start: 10-22-2018 Tobacco smoking stat [facility] Ex-smoker (finding) [facility] Start: 1955 Sex Assigned At Male [facility] Start: 09-29-2022 Tobacco smoking status Heavy t obacco smoker (finding) [facility] Functional Status Date Assessment Result Facility 09-29-2022 Functional Status N/A [facility] 02-25-2022 Functional Status N/A [facility] 02-20-2022 Functional Status [facility] Clinical Notes 02-25-2022 to 07-08-2023 Note Date & Type Note Facility 07-08-2023 Evaluation note Encounter Date Diagnosis Assessment Notes Jun, Acute bronchitis due to other specified organisms (ICD-10 - J20.8) Instructed to use Robitussin or Mucinex for cough, saline or Flonase NS for congestion, Tylenol for pain and fever. Jun, Non-seasonal allergic rhinitis due to pollen (ICD-10 - J30.1) Claritin and Flonase [facility] Other 11-27-2023 Evaluation note* Encounter Date Diagnosis Assessment Notes Treatment Notes Treatment Clinical Notes Apr, Gastroesophageal reflux disease with esophagitis without hemorrhage (ICD-10 - K21.00) Diet instructions: Smaller portions, avoid eating and laying flat, avoid eating or drinking prior to bedtime. Weight loss. Continue PPI for now. Apr, Non-seasonal allergi c rhinitis due to pollen [...] are also encouraged to continue exercise to achieve/maintain a normal BMI. Patient is instructed on home BP measurements: - rest for 5 minutes w/o talking- positioned w/ feet on floor and arm supported- average best 2/3 readings w/ goal < 135/85 [facility] Other 11-13-2023 Evaluation note* Encounter Date Diagnosis Assessment Notes Treatment Notes Treatment Clinical Notes Apr, Subacute cough (ICD-10 - R05.2) [facility] Other 11-03-2023 Evaluation note* Encounter Date Diagnosis Assessment Notes Treatment Notes Treatment Clinical Notes Apr, Acute cough (ICD-10 - R05.1) [facility] Other 10-27-2023 Evaluation note* Encounter Date Diagnosis Assessment Notes Treatment Notes Treatment Clinical Notes Mar, Non-seasonal allergi c rhinitis due to pollen (ICD-10 - J30.1) Avoid smoke, dust or allergens as much as possible. Referral to Blanket Inspector or ENT if no improvement Mar, Gastroesophageal [...] exercise for 30 minutes, 3-5 times weekly. [facility] Other 10-02-2023 Evaluation note* Encounter Date Diagnosis Assessment Notes Treatment Notes Treatment Clinical Notes Mar, Seasonal allergic rhinitis due to pollen (ICD-10 - J30.1) [facility] Other 05-01-2023 Evaluation note* Encounter Date Diagnosis [...] rhinitis due to pollen (ICD-10 - J30.1) [facility] Other 04-17-2023 Hospital Discharge instructions Patient Education [...] have oneof these risk factors: ?Being of -[place] descent. ?Having a family history of prostate [...] you: Are older than age 55. Are -[place]. Have a father, brother, or uncle who [...] 03/12/2018 Document Revised: 05/14/2018 Document Reviewed: 03/12/2018 [employer] Patient Education 2020 [employer]. Follow Up Care 04/03/2022 11:13:30 With:FAUZIA HARVEY, Jose Arias, URL Address: [facility] [address] [place] [address]- When: Unknown [facility] 09-13-2022 Hospital Discharge instructions Patient Education 02/25/2022 [...] Address: [facility] [address], [place] [address]- Business (1) When: Unknown Comments:[facility] App[facility]ments Appointment Date:02/18/2022 07:00:00 AM Scheduled Provider: Location:.[facility] Appointment Type:CT Abdomen/Pelvis Combo (FT) Appointment Date:02/19/2022 10:15:00 AM Scheduled Provider: Location:[facility] Appointment Type:Urology CALL PAT Appointment Date:02/25/2022 09:00:00 AM Scheduled Provider: Location:[facility] Appointment Type:Urology FT Future Scheduled Tests Radiology* CT Abdomen/Pelvis w/ Contrast [facility]18[facility]22 [facility] Future Appointments Appointment Date:02/19/2022 10:15:00 AM Scheduled Provider: Location:[facility] Appointment Type:Urology CALL PAT FT Appointment Date:02/25/2022 09:00:00 AM Scheduled Provider: Location:[facility] Appointment Type:[facility]rology FT [facility] Future Appointments Appointment Date:04/06/2023 11:15:00 AM Scheduled Provider:[facility] Office Visit Diagnostic Tests Pending * PSA Free & Total 09/29/22 [facility] evaluation noteNo assessment information available [facility] Work Phone: Evaluation noteNo InformationNort Thoms[employer] Benefits Other History general Narrative - Reported* Type [...] History COLONOSCOPY Hospitalization History SEE SURGICAL HX [facility] Other Hisbhtc general Narrative - Reported* Type Description Date [...] History LEFT WRIST SURGERY Surgical History COLONOSCOPY Surgical History Cystoscopy 02/2022 Hospitalization History SEE SURGICAL HX [facility] Other Hospital course Narrative No data available for this section [facility] No data available for this section [facility] No data available for this section [facility] (narrative)* Reason *FU 05/19 Referral for constant clearing throat, post nasal drainage and GERD Diagnosis 1 Gastroesophageal ref lux disease with esophagitis without hemorrhage (K21.00) Diagnosis 2 Chronic throat clear ing (R09.89) Diagnosis 3 Allergic rhinitis du e to pollen (J30.1) Referral Organization [facility] Referring Provider First Name Milo Referring Provider Last Name Jose Referring Provider Specialty Internal Me dicine Referred Organization [facility] Referred Provider KrystianriLacey [place] Referred Address ,[place], [place],[address] Referred Provider Specialty Ear, Nose an d [...] today, attachments made, notes locked, referral faxed [facility] Other Summary Purpose Family History No Family History Records Found Relationship Condition Age at Onset Recorded Date/T francesca Not Specified Diabetes mellitus Unknown Advance Directives No Advanced Directives Records Found Advance Directive Response Recorded Date/ Time Advance Directives No October 18, 2018 10:46am Chief Complaint and Reason for Visit Chief Complaint Elevated PSA Additional Source Comments (unrecognized sect ion and content) No Status Records FoundNo Status Records FoundNo Status Records FoundNo Status Records FoundNo Status Records Found INFORMATION SOURCE (unrecogn ized section and content) DATE CREATED AUTHOR 11/03/2021 [facility] dical Specialist DATE CREATED AUTHOR AUTHOR'S ORGANIZ ATION 03/16/2022 [facility] DATE CREATED AUTHOR AUTHOR'S ORGANIZ ATION 10/18/2022 [facility] DATE CREATED AUTHOR AUTHOR'S ORGANIZ ATION 03/04/2023 [facility] DATE CREATED AUTHOR AUTHOR'S ORGANIZ ATION 07/13/2023 [facility] dical Specialists EPIC Care Team (unrecognized sect ion and content) Team Status: Inactive Member Role Status Dates Milo Garcia DO Primary Care Provider Active Jose Cage MD Attending Provider Active Team Status: Active Member Role Status Dates Milo Garcia DO Primary Care Provider Active Goals (unrecognized section and content) Goals may be documented in a n alternate section REASON FOR VISIT (unrecogniz ed section and content) WellnessAllergy Shotreferral to allergistcoughingupdate2 week follow upBP readingsmessageCough, Congestion, Tiredness- COVID [phone] FOR RECORDS PERTAINING TO PATIENTS WHO ARE [...] BE BASED ON THE PRIMARY CLINICAL RECORDS. [employer] [facility]. provides no warranty or guarantee of the accuracy or completeness of information in this document.
[2023-10-18] MEDS: FLUORESCEIN SODIUM 1 MG STRIP OP (10:47)
--- NOTE | 2023-10-18 10:49 | ED.EYEPROB1 ---
HPI - Eye Problem General Chief complaint: Eye Problems Stated complaint: RIGHT EYE PAIN Time Seen by Provider: 10/18/23 10:36 Source: patient Mode of arrival: walk-in History of Present Illness HPI Narrative: 68-year-old male presents for right eye irritation. It has been watering and red. 2 days ago she was cutting a tree limb but also opened up a bottle of weed killer and it created a mist and some of it went towards his face. She did not initially have any foreign body sensation that day and the next day, yesterday, developed some symptoms. Related Data Previous Rx's ?Medication ?Instructions ?Recorded ketorolac 0.5 % eye drops (Acular) 1 drp ophthalmic (eye) Q6H PRN 10/18/23 pain #5 mL sulfacetamide sodium 10 % eye drops 2 drp ophthalmic (eye) Q4H #15 mL 10/18/23 Allergies Allergy/AdvReac Type Severity Reaction Status Date / Time No Known Drug Allergies Allergy Verified 10/18/23 10:18 Review of Systems ROS Narrative A ten point review of systems is negative except as noted above. Exam Narrative Exam Narrative: Nurses note and vital signs reviewed and patient is not hypoxic. General: The patient appears well and in no apparent distress. Patient is resting comfortably on cart. Skin: Warm, dry, no pallor noted. There is no rash noted. Head: Normocephalic, atraumatic Eye: Left eye appears normal. Right conjunctiva is injected. Lid eversion shows no foreign bodies. Examination of the cornea shows no foreign body. Staining and Joy lamp examination show a small corneal abrasion over the pupillary axis. The globe is intact. Ears, Nose, Mouth, and Throat: oral mucosa is moist. Nares patent. Cardiovascular: Regular Rate and Rhythm Respiratory: Patient is in no distress, no accessory muscle use, lungs are clear to auscultation, no wheezing, rales or rhonchi Back: non-tender GI: Soft and nontender Musculoskeletal: The patient has no evidence of calf tenderness, no pitting edema, symmetrical pulses noted bilaterally Neurological: A&O, normal speech Psychiatric: Cooperative Constitutional Vital Signs, click to edit/add: Last Vital Signs Temp 98 F 10/18/23 10:15 Pulse 58 L 10/18/23 10:15 Resp 18 10/18/23 10:15 BP 139/87 10/18/23 10:15 Pulse Ox 98 10/18/23 10:15 O2 Del Method Room Air 10/18/23 10:15 Course Vital Signs Vital signs: Vital Signs Temperature 98 F 10/18/23 10:15 Pulse Rate 58 L 10/18/23 10:15 Respiratory Rate 18 10/18/23 10:15 Blood Pressure 139/87 10/18/23 10:15 Pulse Oximetry 98 10/18/23 10:15 Oxygen Delivery Method Room Air 10/18/23 10:15 Temperature 98 F 10/18/23 10:15 Pulse Rate 58 L 10/18/23 10:15 Respiratory Rate 18 10/18/23 10:15 Blood Pressure 139/87 10/18/23 10:15 Pulse Oximetry 98 10/18/23 10:15 Oxygen Delivery Method Room Air 10/18/23 10:15 MDM - Eye Problem MDM Narrative Medical decision making narrative: Corneal abrasion is identified. He is updated on his tetanus and was prescribed Acular and Bleph-10. Treatment diagnosis and follow-up were discussed with the patient Differential Diagnosis Differential diagnosis: Likely corneal abrasion, conjunctivitis, hyphema and subconjunctival hemorrhage Discharge Plan Discharge Stand Alone Forms: Portal Instructions Chief Complaint: Eye Problems Clinical Impression: Corneal abrasion Patient Disposition: Home, Self-Care Time of Disposition Decision: 10:48 Condition: Good Mode of Transportation: Private Vehicle Prescriptions / Home Meds: New ketorolac [Acular] 0.5 % drops 1 drp ophthalmic (eye) Q6H PRN (Reason: pain) Qty: 5 0RF sulfacetamide sodium 10 % drops 2 drp ophthalmic (eye) Q4H Qty: 15 0RF Print Language: Albanian Instructions: Corneal Abrasion (ED) Referrals: Physician,Non-Staff, MD [Primary Care Provider] - 1 week
[2023-10-18] MEDS: ADACEL DIPH,PERTUSS(ACELL),TET VAC/PF 0.5 ML ADULT SYRINGE IM (10:56)
== END 2023-10-18 11:06 | disposition home or self-care (01) ==
PROVIDERS: Emergency Provider Emergency Medicine
DX: S05.01XA Injury of conjunctiva and corneal abrasion without foreign body, right eye, initial encounter (principal); X58.XXXA Exposure to other specified factors, initial encounter; Z23 Encounter for immunization
CPT/HCPCS: 90471; 90715; 99283

== ENCOUNTER 2023-11-13 14:34 | Outpatient (OUT) | payer MEDICARE, OTHER, SELFPAY ==
[2023-11-14 08:12] LABS: PSA, Free 0.55 ng/mL; Prostate Specific Ag 1.9 ng/mL (0.0-4.0)
== END 2023-11-13 14:35 | disposition home or self-care (01) ==
PROVIDERS: Visit Provider Urology
DX: R97.20 Elevated prostate specific antigen [PSA] (principal)
CPT/HCPCS: 36415; 84153; 84154

== ENCOUNTER 2024-10-14 09:38 | Outpatient (OUT) | payer MEDICARE, OTHER, SELFPAY ==
[2024-10-14 11:15] LABS: Prostate Specific Antigen Scrn 2.58 ng/mL (<=4.00)
== END 2024-10-14 09:39 | disposition home or self-care (01) ==
LOC: LAB 09:42
PROVIDERS: PCP Internal Medicine; Visit Provider Internal Medicine
DX: Z12.5 Encounter for screening for malignant neoplasm of prostate (principal)
CPT/HCPCS: 36415; G0103

== ENCOUNTER 2024-10-20 09:23 | Outpatient (OUT) | payer MEDICARE, OTHER, SELFPAY ==
--- NOTE | 2024-10-20 09:25 | CT_ITS ---
[address] [address] Patient Name: PRICE ESCOTO MRN: [id number] date: 1955 Sex: M Assigned Patient Location: CT Current Patient Location: CT Accession/Order Number: [id number] Exam Date: 10/20/2024 09:43 Report Date: 10/20/2024 09:49 At the request of: DAYANNA LARSEN DO Procedure: CT lung screening low-dose CT CHEST WITHOUT CONTRAST, LOW DOSE SCREENING: CLINICAL DATA: A 69-year old former smoker, COMPARISON: CT lung screen 10/13/2023 TECHNIQUE: Noncontrast axial CT scan images of the chest were obtained under the low dose screening CT protocol. Coronal and sagittal reconstructed images were also submitted. FINDINGS: Mediastinum : Suboptimal evaluation due to low-dose technique. Thoracic aorta appears normal in caliber. Pulmonary trunk appears nondilated. No pericardial effusion. No lymphadenopathy. The esophagus is grossly unremarkable. Lungs: No focal consolidation, pneumothorax or pleural effusion. Trachea and distal airways appear patent. Emphysema. Diffuse bronchial wall thickening. Mild lung scarring. A few scattered tree-in-bud nodules are noted. No suspicious noncalcified pulmonary nodule or mass. Upper abdomen: No acute findings. Bony thorax and chest wall: Soft tissues surrounding the chest wall demonstrate no acute findings. Osseous structures demonstrate degenerative change. Stable chronic impression deformities involving the thoracic spine. CT/CT lung screening low-dose IMPRESSION: NO SUSPICIOUS PULMONARY NODULE. LUNG - RADS Version 1.0 Assessment: Category 1, Negative (No nodules and definitely benign nodules). Management: Continue annual lung screening with LDCT in 12 months. Impression dictated by: Tez Barakat Jr., D.O. 10/20/2024 9:49 AM Dictation Location: [place] [address] Electronically authenticated by: [id number] Y Date: 10/20/2024 09:49
== END 2024-10-20 09:24 | disposition home or self-care (01) ==
LOC: CT 09:23
PROVIDERS: PCP Internal Medicine; Visit Provider Internal Medicine
DX: Z87.891 Personal history of nicotine dependence (principal)
CPT/HCPCS: 71271